=== PATIENT | female | born 1970 | race Caucasian/White ===

== ENCOUNTER 2022-08-23 02:43 | Emergency (ER) | payer MEDICAID, SELFPAY ==
[2022-08-23 02:55] VITALS: BP 151/87; PULSE 80; RESP 24; TEMP 37.1; O2SAT 99; BMI 33.5
--- NOTE | 2022-08-23 03:36 | ED_ITS ---
HPI - General Adult General Chief complaint: Unspecified Complaint, Adult Stated complaint: Numbness in hands and face Time Seen by Provider: 08/23/22 03:19 Source: patient Mode of arrival: ambulatory Limitations: no limitations History of Present Illness HPI narrative: Patient presents to the emergency department in the middle of the night with concerns of bilateral equal occasional intermittent tingling in her fingertips and feet. It always happens bilaterally and it is not associated with motor deficit. She states that her friend convinced her to come in and get ?checked out?. Patient says that these symptoms have been going on for weeks and she did bring them up briefly to her primary care provider at her recent office visit last week. Patient states that she was seen for her typical annual exam and she was diagnosed with osteoarthritis. It sounds as though she had multiple additional complaints in addition to the annual physical that she had booked. She does take several medications which would cause peripheral neurological changes including Soma and Lyrica and she also reports that she has recently started oxycodone. She also reports a diagnosis of fibromyalgia for over 20 years but has no history of neurological disorders such as ALS, MS or other peripheral nerve conditions. She has had no recent fever. She does report significant fatigue and states that she will stay in bed for days at a time. Again, I reiterate that often these are side effects of her medications. She has absolutely no difficulty walking into the emergency room, participating in exam today. She specifically denies stress, anxiety or any abuse potential within the home. She has had no recent falls, injury or trauma. She denies chest pain, acute illness or infection. She does also report some occasional numbness on the side of her face which is not currently present at this time. No speech difficulty, no swallowing difficulty. No vision change from baseline. Past medical history notable for fibromyalgia, sleep disorder, migraines. Medications are reviewed from the [facility]. Unfortunately there is a bit of a problem with the up link and I am not able to see her labs today that she had done last week. She denies marijuana use, illicit drug use or recent alcohol intake. No pertinent travel. ROS is notable for chronic pain, osteoarthritis pain in multiple sites, the neurological changes as above. No other focal stroke-like neurological symptoms. Related Data Home Medications Medication Instructions Recorded Confirmed carisoprodol 350 mg tablet 350 mg PO 3XD 08/23/22 08/23/22 cholecalciferol (vitamin D3) 125 125 mcg PO DAILY 08/23/22 08/23/22 mcg (5,000 unit) capsule fluticasone propionate 50 1 spray intranasal BID 08/23/22 08/23/22 mcg/actuation nasal spray,suspension ketoconazole 2 % shampoo topical DAILY PRN 08/23/22 lisinopril 10 mg tablet 10 mg PO DAILY 08/23/22 08/23/22 oxycodone-acetaminophen 5 mg-325 1 tab PO Q6H PRN pain 08/23/22 08/23/22 mg tablet pregabalin 150 mg capsule 150 mg PO BID 08/23/22 08/23/22 sucralfate 1 gram tablet 1 g PO BID 08/23/22 08/23/22 sumatriptan succinate 25 mg tablet 25 mg PO BID 08/23/22 08/23/22 sumatriptan succinate 50 mg tablet 100 mg PO BID PRN migraine 08/23/22 08/23/22 trazodone 100 mg tablet 150 mg PO QPM 08/23/22 08/23/22 Allergies Allergy/AdvReac Type Severity Reaction Status Date / Time dicyclomine Allergy Severe Anaphylaxis Verified 12/09/21 12:30 metoclopramide Allergy Severe Anaphylaxis Verified 12/09/21 12:30 cimetidine Allergy Mild Unknown Verified 12/09/21 12:30 naproxen Allergy Mild Nausea Verified 12/09/21 12:30 duloxetine Allergy Unknown Unknown Verified 12/09/21 12:30 gabapentin Allergy Unknown Unknown Verified 12/09/21 12:30 lactase Allergy Unknown Unknown Verified 12/09/21 12:30 lactulose Allergy Unknown Unknown Verified 12/09/21 12:30 latex Allergy Unknown Unknown Verified 12/09/21 12:30 omeprazole Allergy Unknown Unknown Verified 12/09/21 12:30 Proton Pump Inhibitors Allergy Unknown Unknown Verified 12/09/21 12:30 penicillin V AdvReac Mild Nausea, QUINONEZ Verified 12/09/21 12:30 Milk derivatives Allergy Severe H/A, Uncoded 12/09/21 12:30 vomiting Soy Allergy Allergy Intermediate Migraine, Uncoded 12/09/21 12:30 QUINONEZ METOCLOPRAMIDE HCL Allergy Unknown Uncoded 12/09/21 12:30 Mold extracts Allergy Unknown Uncoded 12/09/21 12:30 TRICHOPHYTON MENTAGROPHYTES Allergy Unknown Uncoded 12/09/21 12:30 ALLERGE Sulfa drugs AdvReac Mild Uncoded 12/09/21 12:30 PFSH PFSH Medical History Adenomatous colon polyp Bicornuate uterus Chronic back pain Condyloma acuminatum Dental abscess Endometriosis Fibromyalgia GERD (gastroesophageal reflux disease) Lumbar disc disease Migraine headache Myositis Osteoarthritis PONV (postoperative nausea and vomiting) PTSD (post-traumatic stress disorder) Ventricular fibrillation Surgical History Abnormal colonoscopy History of esophagogastroduodenoscopy (EGD) Social History Smoking Status: Never smoker Do you use any of these nicotine containing products: None How often do you have a drink containing alcohol: never AUDIT-C Alcohol total score: 0 Non-prescribed substance use: denies use service: No Exam Const: Vital Signs, click to edit/add: Vital Signs - 24 hr 08/23/22 02:55 Temperature 98.8 F Pulse Rate [Left P ulse Oximeter] 80 Respiratory Rate 24 Blood Pressure [Ri ght Upper Arm] 151/87 H Pulse Oximetry 99 Oxygen Delivery Me thod Room Air Documenting provider has reviewed patient's vital signs: yes Common normal s: no apparent distress and alert General appearance: cooperative, comfortable and well kempt Orientation/consciousness: Yes awake Other: Very meandering story, nurse reporting significant difficulty pinning down her symptoms in triage as well. Ambulates into emergency department into exam room with absolutely no fit difficulty. Speaking full fluent sentences, no confusion. HENMT: Common normals: normocephalic and head/scalp atraumatic Head and scalp: normocephalic and atraumatic Face and sinus: normal facial exam Mouth: oral and palatal mucosa normal Throat: posterior oropharynx normal Eye: Common normals: PERRL, EOMs intact bilaterally and conjunctivae normal General eye: normal appearance of both eyes Conjunctiva: conjunctiva(e) normal Pupil: PERRL Neck & C-Spine: Common normals: full ROM, no lymphadenopathy and supple Other: Some mild degenerative changes and poor posture overall, chronic rounding of shoulders. Resp: Common normals: normal respiratory effort, no use of accessory muscles and clear to auscultation bilaterally Effort & inspection: able to speak in complete sentences Auscultation: clear to auscultation bilaterally Cardio: Common normals: regular rate, regular rhythm, S1 normal heart sound, S2 normal heart sound, no murmurs and peripheral pulses 2+ throughout Rate: regular rate Rhythm: regular rhythm Heart sounds: S1 normal and S2 normal Peripheral pulses: pulses 2+ throughout GI: Common normals: Normal to inspection, nondistended, normoactive bowel sounds present and soft to palpation Palpation: soft Extremity: Common normals: normal capillary refill Other: Hands with normal symmetric movement bilaterally, no deformity. Minimal osteoarthritic changes but no redness, swelling, effusions. Fine motor exam and sensory exam is completely normal. Strength is normal in all fingers. Normal range of motion of both wrists. Neuro: Sensorium/orientation: awake and alert Cranial nerves: CN normal except as noted Coordination/balance: tandem gait normal, does not sway with eyes open, Romberg test negative, Normal rapid alternating movements of the distal upper extremity present (Neuro) and Normal rapid alternating movements of the distal lower extremity present (Neuro) Speech: speech normal Gait (neuro): normal gait Motor exam: strength 5/5 throughout, no pronator drift, no tremor noted, muscle tone normal throughout and no movement abnormalities noted Coordination: tandem gait normal, does not sway with eyes open, rapid alternating movement UE normal and rapid alternating movement LE normal Psych: Common normals: speech normal Appearance: well kempt Attitude: other (Mildly anxious but very reasonable) Activity/motor behavior: appropriate eye contact Speech: normal speech Memory/cognition: memory grossly intact Insight: insight good Judgement: judgment good Other: Very agreeable and understanding at my recommendation to not pursue an extensive workup after a very reassuring exam Skin: Common normals: no rashes or lesions noted General skin exam: no rashes or lesions noted Course Vital Signs Vital signs: Initial Vital Signs Temperature 98.8 F 08/23/22 02:55 Temperature Source Temporal Artery Scan 08/23/22 02:55 Pulse Rate 80 08/23/22 02:55 Pulse Rhythm 08/23/22 02:55 Pulse Strength 3+ Normal 08/23/22 02:55 Respiratory Rate 24 08/23/22 02:55 Blood Pressure 151/87 H 03/13/23 02:55 Blood Pressure Mean 108 08/23/22 02:55 Blood Pressure Position Semi-Fowlers 08/23/22 02:55 Pulse Oximetry 99 08/23/22 02:55 Oxygen Delivery Method 08/23/22 02:55 Vital Signs Temperature 98.8 F 08/23/22 02:55 Pulse Rate 80 08/23/22 02:55 Respiratory Rate 24 08/23/22 02:55 Blood Pressure 151/87 H 08/23/22 02:55 Pulse Oximetry 99 08/23/22 02:55 Oxygen Delivery Method 08/23/22 02:55 Temperature 98.8 F 08/23/22 02:55 Pulse Rate 80 08/23/22 02:55 Respiratory Rate 24 08/23/22 02:55 Blood Pressure 151/87 H 08/23/22 02:55 Pulse Oximetry 99 08/23/22 02:55 Oxygen Delivery Method 08/23/22 02:55 Medical Decision Making MDM Narrative Medical decision making narrative: Weeks of nonspecific bilateral symptoms in the setting of chronic medications and illness that would explain her symptoms. Recent full workup with primary care provider including labs. Completely benign and reassuring exam. I do not recommend repeat blood work, I do not recommend cranial imaging. I do strongly recommend primary care follow-up specifically to address this in a couple of weeks. She should be prepared to discuss reduction in her Soma and Lyrica if her symptoms are bothersome enough to warrant doing so. This may be no change in her pain control. The benefits of staying on the medication may outweigh the risk for her. This should be carefully considered by her primary care provider. I will make no changes in the emergency department today. She verbalizes understanding and complete agreement. Discharge Plan Discharge Clinical Impression: Numbness and tingling in both hands Patient Disposition: Home, Self-Care Condition: Stable Instructions: Paresthesia (ED) Additional Instructions: There are absolutely no signs of stroke today. I do not recommend that we repeat the blood work that you would have done last week or that we do any other advanced imaging of your head. Please make an appointment with your primary care provider specifically to address your concerns with your numbness. You are on several medications that would markedly increase her chance of tingling and clumsiness in your fingers such as your Soma and your Lyrica. Having fibromyalgia also increases this risk as well. It is important to remember that neurological changes equally in both hands especially things that have been going on gradually for several weeks do not warrant emergent worry. As we also discussed. Stopping or reducing your current medications is likely to have impact in your overall pain control. The side effects that you are experiencing are likely worth tolerating in the balance of your long-term health. If you do not believe this to be true, you should discuss a reduction with your primary care provider. It is possible that you have some mild underlying arthritis in your neck thick could be pressing on the nerves as well. Based on your exam, this is less likely because your strength is normal and your symptoms are on both sides of your body. Together, we agree that additional emergency room workup is not necessary. If you start having stroke-like symptoms such as passing out, significant changes from 1 side of the body to the other, speech difficulty and sudden neurological changes from her baseline, you should seek repeat evaluation. Activity Level: No Restrictions Discharge Diet: Regular Prescriptions: No Action carisoprodol 350 mg tablet 350 mg PO 3XD ketoconazole 2 % shampoo topical DAILY PRN sucralfate 1 gram tablet 1 g PO BID sumatriptan succinate 25 mg tablet 25 mg PO BID sumatriptan succinate 50 mg tablet 100 mg PO BID PRN (Reason: migraine) oxycodone-acetaminophen 5-325 mg tablet 1 tab PO Q6H PRN (Reason: pain) trazodone 100 mg tablet 150 mg PO QPM lisinopril 10 mg tablet 10 mg PO DAILY fluticasone propionate 50 mcg/actuation spray,suspension 1 spray INTRANASAL BID cholecalciferol (vitamin D3) 125 mcg (5,000 unit) capsule 125 mcg PO DAILY pregabalin 150 mg capsule 150 mg PO BID Follow Up/Referrals: Adele Rodriguez PA-C [Primary Care Provider] - Stand Alone Forms: [facility] Info Instructions
== END 2022-08-23 03:46 | disposition home or self-care (01) ==
PROVIDERS: Emergency Provider Family Medicine; PCP Physician Assistant Medical
DX: R20.0 Anesthesia of skin (principal)
CPT/HCPCS: 99282; 99283

== ENCOUNTER 2022-09-08 11:43 | Outpatient (CLI) | payer MEDICAID, SELFPAY | END 2022-09-08 11:44 | disposition home or self-care (01) | LOC: NFLDREF 11:44 | PROVIDERS: PCP Physician Assistant Medical; Visit Provider Obstetrics & Gynecology | DX: N81.9 Female genital prolapse, unspecified (principal) | CPT/HCPCS: 87086 ==

== ENCOUNTER 2023-04-04 16:15 | Inpatient (IN) | payer MEDICAID, SELFPAY ==
[2023-04-04] VITALS (21 sets, daily range): BP systolic 120–154; BP diastolic 70–97; PULSE 64–94; RESP 12–16; TEMP 36.4–37.3; O2SAT 93–98; BMI 36.6
[2023-04-04] MEDS: LACTATED RINGERS 1000 ML 1,000 ML 100 ML IV ×2 (09:25→11:52)
[2023-04-04] MEDS: SODIUM CHLORIDE 0.9 % (FLUSH) 10 ML SYRINGE IVF (09:25)
--- NOTE | 2023-04-04 09:48 | SUR.PREOP ---
PATIENT OFFERED A CALMING ESSENTIAL OIL PATCH FOR ANXIETY. PATIENT REVIEWED INGREDIENTS AND WANTED TO TRY.
--- NOTE | 2023-04-04 10:17 | P.GSOP_ITS ---
Operative Note Pre-op diagnosis: Incisional hernia, partially incarcerated Post-op diagnosis: Same Type of Procedure: Open repair 4 cm incisional hernia with mesh Indications: The patient is a 52-year-old female who has an umbilical hernia which has been present for several years. This may be incisional as she has had prior laparoscopic procedures. She is having worsening symptoms with activity and because of this she desires repair. Procedure Description: After discussing the risks and benefits of the procedure, the patient signed in formed consent.? The operative site was marked and the patient was brought to the operating room and placed on the operating table in supine position.? Care was taken to pad the patient's pressure points.?? The patient was then intubated by anesthesia.??Anesthesia performed a TAP block to help with intraoperative and postoperative pain control/anesthesia management. The operative site was then prepped and draped in the usual sterile fashion.? A time-out was then performed. Incision was made below the umbilicus. Dissection was taken down until the hernia sac was encountered. This was dissected off the umbilical stalk. There was more scar tissue between the hernia sac and subcutaneous than usual, indicating that this is likely an incisional hernia from prior surgeries. Dissection was taken down to fascia. The fascia was grasped with a Wild and pulled into view. There was an additional small omentum containing hernia just to the left of the larger defect. This was dissected out and also reduced. The hernia sac was excised. The fascial edges were cleared circumferentially. Now the hernia was examined. It measured 4 cm. I was able to then create a preperitoneal space by incising the hernia sac at the fascial edge. I did this circumferentially to be able to place a piece of 8 x 12 cm mesh. Once this was done I closed the peritoneum/hernia sac defect. In the preperitoneal space I placed the Bard Ventralight ST mesh. Using 2 0 PDS suture I secured this around the hernia as far away from the as possible to ensure the hernia mesh laid flat. Once this was done I was able to palpate that the mesh was flat within the preperitoneal space. I then closed the fascia over the top of the mesh using 2-0 PDS in a running fashion. This was closed cranially to caudal in the direction of the longest dimension of the mesh. Once this was done, the umbilicus was reapproximated to the fascia. The wound was then closed with 3-0 Vicryl dermal and 4-0 Monocryl running subcuticular suture. Glue and sterile dressings were applied. Instrument sponge and needle counts were correct at the end of the case. The patient was then woken and transported to the recovery area in stable condition. ? The patient tolerated the procedure well. Findings: 4 cm incisional umbilical hernia defect, 1 area containing incarcerated omentum. Anesthesia: GETA Surgeon: Varsha Lakhani MD Estimated blood loss (mL): 5 Disposition: PACU Date of procedure: 04/04/23
[2023-04-04] MEDS: CEFAZOLIN 2 GM INJ IVP (10:29)
--- NOTE | 2023-04-04 11:25 | W.PM.NB ---
Nerve Block Nerve Block Time Seen by Provider: 10:20 Date Seen: 04/04/23 Type of block requested by surgeon for post-operative analgesia: TAP Side: bilateral Time out performed: Yes Verification of patient name: Yes Verification of date of : Yes Site marking: not applicable Name of person performing procedure: maciej Continuous monitoring Was continuous monitoring of O2 sat, B/P, electrical and radio mock up mechanic, recorded every 15 minutes?: Yes Procedure Checklist: sterile prep, needles and gloves Ultrasound guided. Images saved: Yes Medications given in 5ml increments after negative aspiration: Marcaine %: 0.25 mL: 30 Needle gauge: 20 and Exparel mL: 10 Patient tolerated procedure well: Yes Block Charges Block Charge (with Pro Fee): TAP Bilateral Use of Ultrasound Machine for Block: Yes- US Guidance/pain block
[2023-04-04] MEDS: fentaNYL 100 MCG/2 ML inj 50 MCG IVP ×2 (12:05→12:11)
--- NOTE | 2023-04-04 12:06 | W.ANESCHARGE ---
Anesthesia Charges Start Date/Time Anesthesia Start Date: 04/04/23 Anesthesia Start Time: 10:05 Stop Date/Time Anesthesia Stop Date: 04/04/23 Anesthesia Stop Time: 12:02
[2023-04-04] MEDS: HYDROmorphone 0.5 mg/0.5 ml inj IVP ×6 (12:18→22:53)
[2023-04-04] MEDS: OXYCODONE 5 MG TABLET PO (13:11)
[2023-04-04] MEDS: HYDROCODONE-ACETAMIN 5-325 MG 1 TAB PO (17:01)
[2023-04-04] MEDS: cloNIDine HCL 0.1 MG TABLET PO (21:17)
[2023-04-04] MEDS: DOCUSATE SODIUM 100 MG CAPSULE PO (21:17)
--- NOTE | 2023-04-04 22:07 | PC.NURSE ---
VSS, RA. LMQ abdominal pain of 8-9/10- some relief w/ 0.5mg IV dilaudid x2 & oral norco x1. Tolerating regular diet, ate 100% of dinner. Drinking well. Voided x2. Last BM this AM, 04/04. Educated around constipation and narcotics. Up independently. PIV in left hand- SL'd. Will d/c tomorrow if pain controlled. Will continue not monitor, follow POC, and keep pt and family updated. Geovanna Colon RN
[2023-04-04] MEDS: ZOLPIDEM 5 MG TABLET 10 MG PO (22:53)
[2023-04-05] MEDS: HYDROmorphone 0.5 mg/0.5 ml inj IVP ×8 (01:14→23:39)
[2023-04-05 03:00] VITALS: BP 132/89; PULSE 75; RESP 16; TEMP 36.8; O2SAT 95
[2023-04-05] MEDS: SODIUM CHLORIDE 0.9 % (FLUSH) 10 ML SYRINGE IVF (03:37)
--- NOTE | 2023-04-05 06:19 | PC.NURSE ---
Shift note: Pt is tolerating regular diet well without any abdominal symptoms. Independent in room. Dressing appeared dry and clean. Pt constantly asked for pain medication specifically Hydrocodone every 2 hours, rated pain at 8. Offered to give other prescribed pain medications but pt declined. Pt specifically requested foe Hydrocodone. Alert and oriented,vitally stable.
--- NOTE | 2023-04-05 07:24 | W.PM.NB ---
Nerve Block Nerve Block Time Seen by Provider: 10:20 Date Seen: 04/05/23 Type of block requested by surgeon for post-operative analgesia: TAP Side: bilateral Time out performed: Yes Verification of patient name: Yes Verification of date of : Yes Site marking: not applicable Name of person performing procedure: maciej Continuous monitoring Was continuous monitoring of O2 sat, B/P, manager monitoring, recorded every 15 minutes?: Yes Procedure Checklist: sterile prep and needles Ultrasound guided. Images saved: Yes Medications given in 5ml increments after negative aspiration: Marcaine %: 0.25 mL: 30 Needle gauge: 20 and Exparel mL: 10 Patient tolerated procedure well: Yes Block Charges Block Charge (with Pro Fee): TAP Bilateral Use of Ultrasound Machine for Block: Yes- US Guidance/pain block
[2023-04-05 08:00] VITALS: BP 153/95; PULSE 70; RESP 18; TEMP 36.3; O2SAT 98
[2023-04-05] MEDS: KETOROLAC 15 MG/ML inj IVP (08:57)
[2023-04-05] MEDS: lisinopriL 10 MG TABLET PO (09:57)
[2023-04-05] MEDS: cloNIDine HCL 0.1 MG TABLET PO ×2 (09:57→20:35)
[2023-04-05] MEDS: DOCUSATE SODIUM 100 MG CAPSULE PO ×2 (09:58→20:35)
--- NOTE | 2023-04-05 10:05 | NUTR.NU ---
RDN with diet education. Patient is post op day 1 from hernia repair. She is currently on a high-fiber diet which she is tolerating. RDN visited with patient whom reports trying to include high-fiber foods at home, specifically breads. RDN offered diet education for high-fiber diet, however patient declined at this time. Patient did accept educational materials on high-fiber diet (from [facility]). RDN's contact informaiton was provided and patient was encouraged to call with questions or concerns.
[2023-04-05] MEDS: OxyCODONE/APAP 5-325 TABLET PO ×4 (10:27→22:51)
[2023-04-05] MEDS: OXYCODONE 5 MG TABLET PO (10:28)
--- NOTE | 2023-04-05 12:33 | PM.GSPN ---
Subjective Subjective Date Seen: 04/05/23 Interval history: Ashley continues to rate her pain as persistently 8-9 and 10. She has been up and moving around. No tachycardia. She does not like the Vernon as she does not feel that works for her. She does take Percocet, 7.5 mg 3 times a day. Exam Narrative: Exam Narrative: General: No acute distress, though she is somewhat tearful when we discussed discharge. CV: Regular rate Abdomen: Dressing is clean and dry. Appropriately tender for the postop state. Const: Vital Signs, click to edit/add: Vital Signs - 24 hr 04/04/23 12:47 04/04/23 13:00 04/04/23 13:15 Temperature 99.2 F Pulse Rate 74 67 68 Pulse Rate [Left P ulse Oximeter] Respiratory Rate 16 16 16 Blood Pressure 134/87 120/77 138/97 H Blood Pressure [Ri ght Arm] Pulse Oximetry 96 95 94 Oxygen Delivery Me thod Room Air Room Air Room Air 04/04/23 13:30 04/04/23 13:45 04/04/23 14:00 Temperature Pulse Rate 80 85 80 Pulse Rate [Left P ulse Oximeter] Respiratory Rate 16 16 16 Blood Pressure 132/90 H 132/84 130/70 Blood Pressure [Ri ght Arm] Pulse Oximetry 93 94 94 Oxygen Delivery Me thod Room Air Room Air Room Air 04/04/23 14:15 04/04/23 14:45 04/04/23 16:00 Temperature 97.5 F L Pulse Rate 80 82 77 Pulse Rate [Left P ulse Oximeter] Respiratory Rate 16 16 16 Blood Pressure 130/72 132/77 Blood Pressure [Ri ght Arm] 136/91 H Pulse Oximetry 97 97 Oxygen Delivery Me thod Room Air Room Air Room Air 04/04/23 16:14 04/04/23 19:00 04/04/23 23:00 Temperature 97.5 F L 98.4 F 97.6 F Pulse Rate Pulse Rate [Left P ulse Oximeter] 77 77 94 Respiratory Rate 16 16 16 Blood Pressure Blood Pressure [Ri ght Arm] 136/91 H 151/89 H 154/96 H Pulse Oximetry 95 94 96 Oxygen Delivery Me thod Room Air Room Air Room Air 04/05/23 03:00 04/05/23 03:00 Temperature 98.2 F Pulse Rate Pulse Rate [Left P ulse Oximeter] 75 Respiratory Rate 16 16 Blood Pressure Blood Pressure [Ri ght Arm] 132/89 Pulse Oximetry 95 Oxygen Delivery Me thod Room Air Progress Note: A&P Assessment and plan (1) Opioid dependence: Status: Acute (2) Chronic pain: Status: Acute (3) Post-op pain: Status: Acute (4) S/P hernia repair: Status: Acute Plan The patient is a 52-year-old female status post umbilical hernia repair. She is very apprehensive about discharge home because she has a history of poor postoperative pain control after surgery. She does chronically take opioids. She has tried going to a pain clinic previously but did not feel that this helped. -we will switch Vernon to Percocet to see if this gives her better pain control. I have also ordered oral oxycodone for breakthrough as this is what she will be going home on. -we discussed Toradol. Given her gastric bypass, she is at increased risk for ulcer and gastritis, however a short course is reasonable as an adjunct treatment. - if she is able to tolerate oral meds she may discharge home later today. -recommended abdominal binder for support
[2023-04-05 13:00] VITALS: BP 138/71; PULSE 73; RESP 18; TEMP 36.5; O2SAT 98
[2023-04-05 15:00] VITALS: BP 107/74; PULSE 71; RESP 18; TEMP 36.4; O2SAT 95
--- NOTE | 2023-04-05 15:34 | PC.NURSE ---
Paresh by Dr. Lakhani. Pt continues to rate her abdominal pain 8-9 out of 10. Medications changed by surgeon, please see eMar for medications provided on day shift.. Tolerated regular diet. Adequate output, urine is slightly concentrated, encourage PO fluids and ambulation. Declined offer of abdominal binder. Last pain check just prior to shift change was 7 out of 10, followed by the administration of 2 percocet. Report to Geovanna LUA for evening shift.
[2023-04-05 19:00] VITALS: BP 117/74; PULSE 68; RESP 16; TEMP 36.4; O2SAT 99
[2023-04-05] MEDS: ZOLPIDEM 5 MG TABLET 10 MG PO (20:35)
--- NOTE | 2023-04-05 23:00 | PC.NURSE ---
End of Shift: Patient pleasant and cooperative. Afebrile. Dressing to abdomen C/D/I. Bowel sounds active, passing flatus. No BM. Tolerating regular diet with no nausea. Up independently in room. Rating pain in abdomen 7-9/10, PRN Dilaudid and Percocet each given x2, taking pain medication about every 2 hours. Updated MD.
[2023-04-05 23:45] VITALS: BP 114/57; PULSE 78; RESP 16; TEMP 36.5; O2SAT 95
[2023-04-06] VITALS (8 sets, daily range): BP systolic 111–136; BP diastolic 66–82; PULSE 60–87; RESP 12–18; TEMP 36.3–36.6; O2SAT 8–98
[2023-04-06] MEDS: HYDROmorphone 0.5 mg/0.5 ml inj IVP ×3 (01:51→20:08)
[2023-04-06] MEDS: OxyCODONE/APAP 5-325 TABLET PO ×5 (03:43→18:59)
[2023-04-06] MEDS: KETOROLAC 15 MG/ML inj IVP ×2 (04:44→10:15)
[2023-04-06] MEDS: OXYCODONE 5 MG TABLET PO ×3 (07:58→23:24)
--- NOTE | 2023-04-06 08:04 | PC.NURSE ---
Pt is alert and oriented x3. Pt reports 9/10 pain in abdomen, pattern chart writer observed pt's respirations were 16, pt was conversing with pattern chart writer about medications, vitals signs were stable, pain managed with PRN medications and ice pack. Pt's abdominal dressing CDI. Supervisor Pipe Manufacture talked with pt about pain management, frequency, and control, IV medications, Ice pack. Writers asked pt how she manages chronic pain at home, pt reports I take scheduled Percocet 4 times a day, pattern chart writer talked with pt about drug side effects, pt verbalized understanding. Pt is up ad tomas in room, tolerating regular diet, and voiding. Pt slept intermittently throughout night.
[2023-04-06] MEDS: cloNIDine HCL 0.1 MG TABLET PO ×2 (09:08→20:08)
[2023-04-06] MEDS: lisinopriL 10 MG TABLET PO (09:08)
[2023-04-06] MEDS: DOCUSATE SODIUM 100 MG CAPSULE PO (09:08)
[2023-04-06] MEDS: ONDANSETRON 2 MG/ML inj 4 MG IVP (10:14)
[2023-04-06 11:49] LABS: Chloride* 103 mmol/L (96-114)
[2023-04-06 11:50] LABS: Potassium* 4.4 mmol/L (3.6-5.1); Sodium* 136 mmol/L (135-149)
[2023-04-06 11:52] LABS: Anion Gap 5 mEq/L (7-15); Carbon Dioxide* 28 mmol/L (20-32); Creatinine* 0.7 mg/dL (0.5-1.5); Est. Creatinine Clearance* 102.82; Estimated Glomerular Filt Rate 105 ml/min
[2023-04-06 11:53] LABS: Blood Urea Nitrogen* 23 mg/dL (7-30); Calcium* 8.2 mg/dL (8.4-10.6); Glucose* 95 mg/dL (60-115)
[2023-04-06] MEDS: PROCHLORPERAZINE 5 MG/ML VIAL IV (12:29)
[2023-04-06] MEDS: SUCRALFATE 1 GM TABLET PO (13:32)
--- NOTE | 2023-04-06 13:45 | PM.GSPN ---
Subjective Subjective Date Seen: 04/06/23 Interval history: Ashley developed some nausea this morning. Has not had much of an appetite. Does have abdominal pain at the surgical site, however no additional pain. Has passed gas. No bowel movement. Exam Narrative: Exam Narrative: General: Vital signs are stable. CV: Regular rate and rhythm Respiratory: Clear to auscultation bilaterally Abdomen: Protuberant. Incision is clean and dry without erythema. Appropriately tender for the postoperative state. Const: Vital Signs, click to edit/add: Vital Signs - 24 hr 04/05/23 15:00 04/05/23 15:00 04/05/23 19:00 Temperature 97.5 F L 97.5 F L Pulse Rate [Left P ulse Oximeter] 71 71 68 Respiratory Rate 18 18 16 Blood Pressure [Le ft Arm] Blood Pressure [Ri ght Arm] 107/74 117/74 Pulse Oximetry 95 99 Oxygen Delivery Me thod Room Air Room Air 04/05/23 23:45 04/05/23 23:45 04/06/23 02:00 Temperature 97.7 F 97.9 F Pulse Rate [Left P ulse Oximeter] 78 78 71 Respiratory Rate 16 16 18 Blood Pressure [Le ft Arm] Blood Pressure [Ri ght Arm] 114/57 L 119/71 Pulse Oximetry 95 98 Oxygen Delivery Me thod Room Air Room Air 04/06/23 07:00 04/06/23 08:00 04/06/23 10:01 Temperature 97.5 F L 97.4 F L Pulse Rate [Left P ulse Oximeter] 64 64 63 Respiratory Rate 16 16 Blood Pressure [Le ft Arm] 129/67 Blood Pressure [Ri ght Arm] 136/82 Pulse Oximetry 8 L Oxygen Delivery Me thod Room Air 04/06/23 11:45 Temperature 97.5 F L Pulse Rate [Left P ulse Oximeter] 60 Respiratory Rate 12 Blood Pressure [Le ft Arm] Blood Pressure [Ri ght Arm] 124/79 Pulse Oximetry 98 Oxygen Delivery Me thod Room Air Labs/Imaging Labs Labs: Electrolytes within normal limits per Progress Note: A&P Assessment and plan (1) Nausea & vomiting: Status: Acute (2) S/P hernia repair: Status: Acute (3) Post-op pain: Status: Acute (4) Chronic pain: Status: Acute (5) Opioid dependence: Status: Acute Plan The patient is a 52-year-old female status post umbilical hernia repair with mesh. She is still admitted to the hospital postoperative pain. Today she developed nausea and vomiting. No increase in abdominal pain. She did still get a dose of IV Dilaudid this morning. She has previously developed nausea from NSAIDs and so Toradol was stopped. Carafate was used to treat this and so a dose was ordered. We will see if we can get her nausea under control and then if she is feeling better she could potentially discharge home. I did encourage her to try to use oral pain medicine today rather than IV. -will start Lovenox for DVT prophylaxis today -if patient continues to have nausea and vomiting will have to be NPO with IV fluids.
[2023-04-06] MEDS: ENOXAPARIN 40 MG/0.4 ML INJ SUBCUT (17:17)
--- NOTE | 2023-04-06 17:57 | PC.NURSE ---
End of Shift: Patient pleasant and cooperative. Patient vitally stable, lungs clear, BS WNL, IV intact and SL. Patient with nausea today, zophran given, then compazine given at patient was still vomiting after zophran. Nausea improved after compazine, emesis about 200cc total. Patient always rates pain 7-8/10. Dilauded and toradol given once, oxy 5mg given x2 and percocet given x3. Patient has not requested pain medicine after administration of IV pain medications nor has television script writer offered, television script writer has given percocet and oxy when due. Patient tolerated lunch and dinner without emesis. Active Ice used on abdomen for pain. Patient independent in room, up in chair, and urinating. Abdominal umbilical incision C/D/I. Patient is aware of discharge tomorrow.
[2023-04-06] MEDS: SENNOSIDES/DOCUSATE TABLET 1 TAB PO (20:08)
[2023-04-07] MEDS: HYDROmorphone 0.5 mg/0.5 ml inj IVP (01:27)
[2023-04-07] MEDS: ZOLPIDEM 5 MG TABLET 10 MG PO (02:41)
[2023-04-07 02:46] VITALS: BP 122/69; PULSE 70; RESP 16; TEMP 36.6; O2SAT 95
--- NOTE | 2023-04-07 06:25 | PC.NURSE ---
Shift note: Pt had no nausea and vomiting this shift. Alert and oriented. Pain level has constantly been at 8 per pt. PRN Oxycodone and Hydrocodone given as requested. Vitally stable. Bowel sound active.
[2023-04-07] MEDS: OXYCODONE 5 MG TABLET PO (06:32)
[2023-04-07 07:00] VITALS: BP 129/74; PULSE 72; RESP 16; TEMP 36.6; O2SAT 95
[2023-04-07] MEDS: ACETAMINOPHEN 325 MG TABLET 650 MG PO (07:53)
--- NOTE | 2023-04-07 08:47 | P.DS_ITS ---
DS: Providers Provider Date Seen: 04/07/23 Date of admission: 04/05/23 16:34 Primary care physician: Adele Rodriguez PA-C Admitting Clinician: Steven Elizalde MD Attending Physician on discharge: Varsha Lakhani MD DS: Diagnosis Discharge Diagnosis (1) S/P hernia repair: Status: Acute DS: Summary Hospital Course Hospital Course: 52-year-old female was admitted to the hospital after she underwent umbilical incisional hernia repair with mesh. Patient has chronic pain and was admitted for pain control postoperatively. She did well postoperatively. She had nausea and vomiting which improved. Her pain was controlled with p.o. medications. She was passing gas in the day of discharge. Time Spent with Patient Time attestation: Total time spent providing and/or coordinating discharge services: Exam Narrative: Exam Narrative: Abdomen is soft, not distended, there is minimal discomfort to palpation to the left of the umbilicus and inferior to the umbilicus. Surgical glue is intact at the infraumbilical incision and there is no surrounding erythema. Const: Vital Signs, click to edit/add: Vital Signs - 24 hr 04/06/23 10:01 04/06/23 11:45 04/06/23 15:00 Temperature 97.4 F L 97.5 F L 97.5 F L Pulse Rate [Left P ulse Oximeter] 63 60 61 Respiratory Rate 12 14 Blood Pressure [Le ft Arm] Blood Pressure [Ri ght Arm] 136/82 124/79 111/66 Pulse Oximetry 98 97 Oxygen Delivery Me thod Room Air Room Air 04/06/23 15:00 04/06/23 19:00 04/06/23 23:00 Temperature 97.5 F L 97.7 F Pulse Rate [Left P ulse Oximeter] 61 87 67 Respiratory Rate 14 16 16 Blood Pressure [Le ft Arm] 121/66 120/69 Blood Pressure [Ri ght Arm] Pulse Oximetry 96 96 Oxygen Delivery Me thod Room Air Room Air 04/07/23 02:46 04/07/23 07:00 04/07/23 07:00 Temperature 97.8 F 98 F Pulse Rate [Left P ulse Oximeter] 70 72 72 Respiratory Rate 16 16 16 Blood Pressure [Le ft Arm] 122/69 Blood Pressure [Ri ght Arm] 129/74 Pulse Oximetry 95 95 Oxygen Delivery Me thod Room Air Room Air DS: Data Data Completed and Pending Labs on day of discharge: Labs from last 24 hours 04/06/23 11:28 Sodium 136 Potassium 4.4 Chloride 103 Carbon Dioxide 28 Anion Gap 5 L BUN 23 Creatinine 0.7 Estimated Creat Clear 102.82 Estimated GFR 105 Glucose 95 Calcium 8.2 L Discharge Plan Discharge Disposition: Home, Self-Care Date of Admission: 04/05/23 16:34 Attending Provider on Discharge: Varsha Lakhani Primary Care Provider: Adele Rodriguez Condition: Stable Anticipated Discharge Date/Time: 04/07/23 08:46 Discharge Medications: New oxycodone 5 mg Tablet 5 - 10 mg PO Q6H PRN (Reason: Pain) Qty: 30 0RF Continued zolpidem 5 mg tablet 5 mg PO HS PRN (Reason: insomnia) rizatriptan 10 mg tablet 10 mg PO Q2H PRN (Reason: migraine) carisoprodol 350 mg tablet 350 mg PO 3XD ketoconazole 2 % shampoo 1 applic topical DAILY PRN sucralfate 1 gram tablet 1 g PO BID oxycodone-acetaminophen 5-325 mg tablet 1 tab PO Q6H PRN (Reason: pain) trazodone 100 mg tablet 150 mg PO HS lisinopril 10 mg tablet 10 mg PO DAILY fluticasone propionate 50 mcg/actuation spray,suspension 1 spray INTRANASAL BID PRN cholecalciferol (vitamin D3) 125 mcg (5,000 unit) capsule 125 mcg PO DAILY pregabalin 150 mg capsule 150 mg PO TID clonidine HCl 0.1 mg tablet 0.1 mg PO BID cyanocobalamin (vitamin B-12) 1,000 mcg capsule 1,000 mcg PO DAILY cyclobenzaprine 10 mg tablet 10 mg PO 3XD PRN (Reason: muscle spasm) docusate sodium 100 mg capsule 100 mg PO BID loratadine [Claritin] 10 mg tablet 10 mg PO DAILY naloxone [Narcan] 4 mg/actuation spray,non-aerosol 1 spray intranasal Q2-3M PRN Rx Instructions: spray 1 dose into ONE nostril; alternate nostrils w each dose until help arrives ondansetron 4 mg tablet,disintegrating 8 mg PO Q8H PRN sumatriptan succinate [Imitrex] 25 mg tablet 25 mg PO Q2-4H PRN Rx Instructions: do not exceed 8 doses per 24 hrs Discharge Orders: Discharge Order (Routine); Ordered 04/07/23 Ordered By: Mellissa Okeefe Consulting provider completed their portion of the discharge: Yes Patient Education: Umbilical Hernia Repair (DC), Care After General Anesthesia (DC), Post-Operative Instructions: Hernia Repair Additional Instructions: Wound care: Your sutures are under the skin and will dissolve over time. Remove outer bandage tomorrow. Leave glue in place until it falls off. OK to shower tomorrow but avoid bathing, soaking or swimming for 2 weeks. Pat the incisions dry. No need to wash or scrub the area. Apply ice to the area as needed for swelling. It is also OK to use a heating pad if this provides more comfort to you. Pain control: You were prescribed two pain medications. You can take both this in addition to your baseline dose of pain medication for chronic pain, however, you must exercise caution with the additional oxycodone as it can cause drowsiness and difficulty breathing if too much is taken. You should start with the lowest dose. You were prescribed Ketorolac, however, you do not need to fill this if you are having nausea as this can cause stomach upset if taken for several days. You should not drive while you are taking prescription pain medication. Take an [id number] stool softener while you are taking prescribed pain medications to help alleviate constipation. I recommend Senna and/or Colace. Take as directed on package. If you have not had a bowel movement in 3 days, try taking Miralax as directed on the package. All of these are available over the counter. Follow-up Follow up with Dr. Lakhani in 2-3 weeks Please call if you are experiencing severe pain, nausea, vomiting, difficulty urinating, fever or have not had bowel movement in 4 days after surgery. Activity Level: No strenuous activity Activity Detail: No lifting more than 20 lb for 6 weeks. Wear abdominal binder when up until you follow-up with Dr. Lakhani Discharge Diet: Regular Follow Up Appointments: Varsha Lakhani MD [Staff Physician] - 04/26/23 1:45 pm (FOLLOW UP WITH DR. LAKHANI AT [facility] [phone]) Forms: Work/School Release
[2023-04-07] MEDS: OxyCODONE/APAP 5-325 TABLET PO (10:09)
[2023-04-07] MEDS: SENNOSIDES/DOCUSATE TABLET 1 TAB PO (10:10)
[2023-04-07] MEDS: cloNIDine HCL 0.1 MG TABLET PO (10:10)
[2023-04-07] MEDS: lisinopriL 10 MG TABLET PO (10:10)
--- NOTE | 2023-04-07 10:39 | PC.NURSE ---
Nursing Care Hours: [id number] Pt this shift alert and oriented, calm and cooperative. No signs of distress. Rating pain 9/10 after receiving pain meds hour prior. Acetaminophen given per eMAR. Reassessed at discharge after reviewing pain scale descriptions and pt rating pain 7/10, treated per eMAR. Ice pack being used. Abdomen soft on palpation, BS active, RLQ hypo. Pt reported BM this morning. Slight nausea in morning, saltine crackers and cool wash cloth given, intervention effective. Independent in room. Pt not using abdominal binder. Educated on use and benefit for pain and discomfort. IV removed at discharge, instructions went over with pt. All questions and concerns addressed.
== END 2023-04-07 10:12 | disposition home or self-care (01) | DRG 940 ==
LOC: MEDSURG 04-05 09:26
PROVIDERS: Admitting Provider Surgery; PCP Physician Assistant Medical; Visit Provider Surgery
PROC: 0WUF0JZ Supplement Abdominal Wall with Synthetic Substitute, Open Approach (ICD-10-PCS; principal; 2023-04-04 10:15)
DX: G89.18 Other acute postprocedural pain (principal); F11.20 Opioid dependence, uncomplicated; K43.0 Incisional hernia with obstruction, without gangrene; R11.2 Nausea with vomiting, unspecified; Z98.84 Bariatric surgery status; G89.29 Other chronic pain; E66.01 Morbid (severe) obesity due to excess calories; Z68.36 Body mass index [BMI] 36.0-36.9, adult; M51.37 Other intervertebral disc degeneration, lumbosacral region; I10 Essential (primary) hypertension; M79.7 Fibromyalgia
CPT/HCPCS: 00832; 36415; 64488; 76942; 80048; A4467; A9270; C1781; C9290; J0665; J0690; J0780; J1100; J1170; J1650; J1885; J2250; J2371; J2405; J2704; J3010; J3490; J7120

== ENCOUNTER 2024-04-29 20:38 | Observation (INO) | payer MEDICAID, SELFPAY ==
[2024-04-29] VITALS (15 sets, daily range): BP systolic 114–139; BP diastolic 79–96; PULSE 78–92; RESP 16–18; TEMP 36.2–36.6; O2SAT 90–100; BMI 33.5; BMI 43.2
--- NOTE | 2024-04-29 21:05 | ED_ITS ---
HPI - General Adult General Chief complaint: Altered Mental Status Stated complaint: altered mental status Time Seen by Provider: 04/29/24 20:55 History of Present Illness HPI narrative: Patient arrives via [facility] with c/o altered mental status from her home in [place]. Patient has been acting like a zombie per family the last few days. Patient was standing in front of a cupboard trying to drink water out of an empty cup when family called 911. Patient became combative with EMS and was restrained and given 5mg versed IM. Patient arrives out of restraints and cooperative. Patient was also given 4mg zofran IVP and 2 lpm O2 after versed admin. Patient's family is concerned the patient has been taking too much oxycodone for her fibromyalgia. Patient is alert to name and . Patient is able to move all extremities equally. BGL 73 in triage. Global sedation without noted focal deficits. Patient c/o chronic spine pain at 6/10. Patient denies fever, cough, recent illness. Patient denies injuries/ falls . Patient denies urinary sx. Patient denies illicit drug/alcohol use. Dad found her on BR floor last night at 1800 and couldn't get her up - possible fall - Father states this has happened several times and believes its a combination of oxycodone and muscle relaxers and takes her a few days to sober up. Pt lives with her father and granddaughter and states he is not safe to take care of her when she gets like this. Effie Tanner (Father) [phone] 53-year-old woman presenting to the emergency department via EMS with concern of altered mental status. She has been rather out of it for family particularly father with whom she lives. Ashley also reports living in this home with her daughter. She does not recall much of today. She believes she played with her daughter yesterday. Does admit that pain has been escalating recently. She say s though that she has been taking her medications as prescribed which do include opiate pain pills and once a course of proton all and pregabalin. She does report left-sided sciatic pain. Does not endorse headache shortness of breath or abdominal pain. No fevers. No cough or cold symptoms recently. She is thirsty. Yesterday evening was found on the floor in the bathroom by her father. Apparently similar events have occurred when has taken too many medications. Denies other substances Review of records shows that has been lately requesting pain medications early. Related Data Home Medications ?Medication ?Instructions ?Recorded ?Confirmed carisoprodol 350 mg tablet 350 mg PO 3XD 08/23/22 04/29/24 cholecalciferol (vitamin D3) 125 125 mcg PO DAILY 08/23/22 04/29/24 mcg (5,000 unit) capsule fluticasone propionate 50 1 spray intranasal BID PRN 08/23/22 04/29/24 mcg/actuation nasal spray,suspension oxycodone-acetaminophen 5 mg-325 1 tab PO Q6H PRN pain 08/23/22 04/29/24 mg tablet pregabalin 150 mg capsule 150 mg PO TID 08/23/22 04/29/24 cyanocobalamin (vitamin B-12) 1,000 mcg PO DAILY 04/01/23 04/29/24 1,000 mcg capsule loratadine 10 mg tablet (Claritin) 10 mg PO DAILY 04/01/23 04/29/24 naloxone 4 mg/actuation nasal 1 spray intranasal Q2-3M PRN 04/01/23 04/29/24 spray (Narcan) sumatriptan succinate 25 mg tablet 25 mg PO Q2-4H PRN 04/01/23 04/29/24 (Imitrex) eszopiclone 3 mg tablet 3 mg PO QPM 04/29/24 04/29/24 Allergies Allergy/AdvReac Type Severity Reaction Status Date / Time dicyclomine Allergy Severe Anaphylaxis Verified 03/20/24 09:27 metoclopramide Allergy Severe Anaphylaxis Verified 03/20/24 09:27 cimetidine Allergy Mild Unknown Verified 03/20/24 09:27 naproxen Allergy Mild Nausea Verified 03/20/24 09:27 duloxetine Allergy Unknown Unknown Verified 03/20/24 09:27 gabapentin Allergy Unknown Unknown Verified 03/20/24 09:27 lactase Allergy Unknown Unknown Verified 03/20/24 09:27 lactulose Allergy Unknown Unknown Verified 03/20/24 09:27 latex Allergy Unknown Unknown Verified 03/20/24 09:27 omeprazole Allergy Unknown Unknown Verified 03/20/24 09:27 Proton Pump Inhibitors Allergy Unknown Unknown Verified 03/20/24 09:27 penicillin V AdvReac Mild Nausea, QUINONEZ Verified 03/20/24 09:27 Milk derivatives Allergy Severe H/A, Uncoded 03/20/24 09:27 vomiting Soy Allergy Allergy Intermediate Migraine, Uncoded 03/20/24 09:27 QUINONEZ METOCLOPRAMIDE HCL Allergy Unknown Uncoded 03/20/24 09:27 Mold extracts Allergy Unknown Uncoded 03/20/24 09:27 TRICHOPHYTON MENTAGROPHYTES Allergy Unknown Uncoded 03/20/24 09:27 ALLERGE Sulfa drugs AdvReac Mild Uncoded 03/20/24 09:27 [facility] Medical History Ventricular fibrillation ?I49.01 - Ventricular fibrillation (ICD-10) PTSD (post-traumatic stress disorder) ?F43.10 - Post-traumatic stress disorder, unspecified (ICD-10) PONV (postoperative nausea and vomiting) ?R11.2 - Nausea with vomiting, unspecified (ICD-10) ?Z98.890 - Other specified postprocedural states (ICD-10) Osteoarthritis ?M19.90 - Unspecified osteoarthritis, unspecified site (ICD-10) Myositis ?M60.9 - Myositis, unspecified (ICD-10) GERD (gastroesophageal reflux disease) ?K21.9 - Gastro-esophageal reflux disease without esophagitis (ICD-10) Fibromyalgia ?M79.7 - Fibromyalgia (ICD-10) Endometriosis ?N80.9 - Endometriosis, unspecified (ICD-10) Lumbar disc disease ?M51.9 - Unspecified thoracic, thoracolumbar and lumbosacral intervertebral disc disorder (ICD-10) Condyloma acuminatum ?A63.0 - Anogenital (venereal) warts (ICD-10) Bicornuate uterus ?Q51.3 - Bicornate uterus (ICD-10) Adenomatous colon polyp ?D12.6 - Benign neoplasm of colon, unspecified (ICD-10) Chronic back pain ?M54.9 - Dorsalgia, unspecified (ICD-10) ?G89.29 - Other chronic pain (ICD-10) Migraine headache ?G43.909 - Migraine, unspecified, not intractable, without status migrainosus (ICD-10) Dental abscess ?K04.7 - Periapical abscess without sinus (ICD-10) Surgical History H/O hernia repair (04/04/23) ?Z98.890 - Other specified postprocedural states (ICD-10) ?Z87.19 - Personal history of other diseases of the digestive system (ICD-10) History of cholecystectomy ?Z90.49 - Acquired absence of other specified parts of digestive tract (ICD- 10) History of Kit-en-Y gastric bypass ?Z98.84 - Bariatric surgery status (ICD-10) Hx of hysterectomy ?Z90.710 - Acquired absence of both cervix and uterus (ICD-10) History of esophagogastroduodenoscopy (EGD) ?Z98.890 - Other specified postprocedural states (ICD-10) Abnormal colonoscopy ?R93.3 - Abnormal findings on diagnostic imaging of other parts of digestive tract (ICD-10) Social History Smoking Status: Never smoker Do you use any of these nicotine containing products: None How often do you have a drink containing alcohol: never How often do you have six or more drinks on one occasion: Never AUDIT-C Alcohol total score: 0 Non-prescribed substance use: denies use and other Non-prescribed substance use details: CBD Oil Caffeine: No Are you using contraception or practicing any form of control: No service: No Exam Narrative: Exam Narrative: Is pleasant but appears mildly obtundent. Intermittently slurring some words. There is some smell of urine. Moving all extremities without apparent difficulty. Regularly wiggling her feet at the ankles; in apparent restlessness/discomfort. Abdomen is obese soft nontender. No indication of injury. Heart in regular rate and rhythm. Distant. Lungs are clear. No indication of injury on her extremities or head. Cranial nerves 2-12 are intact. Pupils are 4 mm and appropriate reactive and accommodating. No nystagmus. Extraocular movements appear full. Oropharynx is sticky. Const: Vital Signs, click to edit/add: Vital Signs - 24 hr 04/29/24 20:51 04/29/24 21:04 04/29/24 21:15 Temperature 97.2 F L Pulse Rate 85 84 Pulse Rate [Right Pulse Oximeter] 92 Respiratory Rate 16 18 Blood Pressure 123/86 Blood Pressure [Le ft Upper Arm] 120/79 Pulse Oximetry 98 96 96 Oxygen Delivery Me thod Room Air Room Air 04/29/24 21:16 04/29/24 21:30 04/29/24 21:32 Temperature Pulse Rate 84 84 88 Pulse Rate [Right Pulse Oximeter] Respiratory Rate 18 Blood Pressure 124/96 H Blood Pressure [Le ft Upper Arm] Pulse Oximetry 97 99 98 Oxygen Delivery Me thod Room Air 04/29/24 21:33 04/29/24 21:45 04/29/24 22:00 Temperature Pulse Rate 90 80 80 Pulse Rate [Right Pulse Oximeter] Respiratory Rate Blood Pressure Blood Pressure [Le ft Upper Arm] Pulse Oximetry 96 99 96 Oxygen Delivery Me thod 04/29/24 22:02 04/29/24 22:20 04/29/24 22:30 Temperature Pulse Rate 82 79 78 Pulse Rate [Right Pulse Oximeter] Respiratory Rate 16 Blood Pressure 114/80 Blood Pressure [Le ft Upper Arm] Pulse Oximetry 97 92 96 Oxygen Delivery Me thod Room Air 04/29/24 22:32 04/29/24 22:45 Temperature Pulse Rate 85 81 Pulse Rate [Right Pulse Oximeter] Respiratory Rate Blood Pressure 124/83 Blood Pressure [Le ft Upper Arm] Pulse Oximetry 90 96 Oxygen Delivery Me thod Documenting provider has reviewed patient's vital signs: yes Course Vital Signs Vital signs: Initial Vital Signs Temperature 97.2 F L 04/29/24 20:51 Temperature Source Temporal Artery Scan 04/29/24 20:51 Pulse Rate 92 04/29/24 20:51 Pulse Rhythm Regular 04/29/24 20:51 Respiratory Rate 16 04/29/24 20:51 Blood Pressure 120/79 04/29/24 20:51 Blood Pressure Mean 92 04/29/24 20:51 Blood Pressure Position Semi-Fowlers 04/29/24 20:51 Pulse Oximetry 98 04/29/24 20:51 Oxygen Delivery Method Room Air 04/29/24 20:51 Vital Signs Temperature 97.2 F L 04/29/24 20:51 Pulse Rate 92 04/29/24 20:51 Respiratory Rate 16 04/29/24 20:51 Blood Pressure 120/79 04/29/24 20:51 Pulse Oximetry 98 04/29/24 20:51 Oxygen Delivery Method Room Air 04/29/24 20:51 Temperature 97.2 F L 04/29/24 20:51 Pulse Rate 81 04/29/24 22:45 Respiratory Rate 16 04/29/24 22:02 Blood Pressure 124/83 04/29/24 22:32 Pulse Oximetry 96 04/29/24 22:45 Oxygen Delivery Method Room Air 04/29/24 22:02 Medications Administered Medications: Discontinued Medications Generic Name Dose Route Start Last Admin Trade Name Evelio PRN Reason Stop Dose Admin Sodium Chloride 500 mls @ 1,000 mls/hr 04/29/24 21:22 04/29/24 21:33 0.9 % Sodium Chloride 500 Ml IV 04/29/24 21:51 1,000 mls/hr .Q30M ONE Administration Medical Decision Making MDM Narrative Medical decision making narrative: Given history and presentation I would for suspect excessive medication intake leading to sedation. There is certainly may have been head injury as well. Does not seem to have infectious etiology but encephalopathy/encephalitis in differential. Does not appear to have focal symptoms to suggest ischemic cerebrovascular event. Appears to be dehydrated. Concern will be ability to care for self at this point. Family concerned about being able to care for her at the moment. Labs are pending. Normal saline bolus. Monitoring Labs are reassuring. Appears a little more alert. Only intervention is time and fluid bolus. Is slightly slurring her words intermittently still but focus is. I did discuss potentially staying for monitoring and further clearing. Was okay with this and as soon as I left the room then called out again saying that she wanted to go home. Had slid to the edge of the bed trying to get out with the rails up. Quite focused in her speech. Not slurring. Will need to test her for ambulation safety. Does not appear interested in detox otherwise. We did contact father who does not feel she is safe to be at home right now and unwilling to come get her. Ashley is now willing to would stay again. Discussed admission with hospitalist who was graciously accepting. Medical Records Medical records reviewed: Yes I reviewed the patient's medical records Lab Data Lab results reviewed: Yes I reviewed the patient's lab results Labs: Lab Results 04/29/24 04/29/24 Range/Units 21:05 21:07 WBC 4.03 L (4.50-11.00) K/uL RBC 3.95 L (4.00-5.20) m/uL Hgb 11.9 L (12.0-16.0) gm/dL Hct 37.1 (33.0-51.0) % MCV 94 (80-100) fL MCH 30 (26-34) pg MCHC 32 (32-36) gm/dL RDW Coeff of Tony 13.0 (11.5-15.5) % Plt Count 288 (140-440) K/uL Neut % (Auto) 49.9 (42.0-72.0) % Lymph % (Auto) 33.0 (20-44) % [place] % (Auto) 12.2 H (0.0-11.0) % Eos % (Auto) 4.2 (0.0-7.0) % Baso % (Auto) 0.7 (0.0-3.0) % Neut # (Auto) 2.00 (1.7-7.0) K/uL Lymph # (Auto) 1.30 (0.90-2.90) K/uL [place] # (Auto) 0.50 (0.00-0.90) K/UL Eos # (Auto) 0.20 (0.00-0.50) K/uL Baso # (Auto) 0.00 (0.00-0.30) K/uL Abs Immat Gran (auto) 0.00 (0.00-0.30) K/uL Imm/Tot Granulo (auto) 0.0 % Sodium 135 (135-149) mmol/L Potassium 4.1 (3.6-5.1) mmol/L Chloride 103 (96-114) mmol/L Carbon Dioxide 24 (20-32) mmol/L Anion Gap 8 (7-15) mEq/L BUN 12 (7-30) mg/dL Creatinine 0.7 (0.5-1.5) mg/dL Estimated Creat Clear 105.08 Estimated GFR 104 ml/min Glucose 79 (60-115) mg/dL Lactate 1.1 (0.5-1.9) mmol/L Calcium 8.2 L (8.4-10.6) mg/dL Total Creatine Kinase 87 (41-117) U/L Troponin I < 0.01 L (0.01-0.04) ng/mL C-Reactive Protein < 0.5 L (0.5-1.0) mg/dL Urine Color Yellow (Yellow) Urine Appearance Clear (Clear) Urine pH 6.0 (5.0-8.5) Ur Specific [place] 1.025 (1.000-1.030) Urine Protein Negative (Negative) Urine Glucose (UA) Negative (Negative) Urine Ketones Negative (Negative) Urine Blood Negative (Negative) Urine Nitrite Negative (Negative) Urine Bilirubin Negative (Negative) Urine Urobilinogen 0.2 (0.2-1.0) Ur Leukocyte Esterase Negative (Negative) Urine RBC 0-2 (0-2) Urine WBC 5-10 A (0-5) Ur Squamous Epith Cells Moderate A (None-Few) Urine Bacteria Many A (None) Salicylates < 1.0 L (1.0-10) mg/dL Urine Opiates Screen POSITIVE A (Negative) Ur Oxycodone Screen POSITIVE A (Negative) Urine Methadone Screen Negative (Negative) Acetaminophen < 10.0 L (10.0-30.0) ug/mL Ur Barbiturates Screen Negative (Negative) U Tricyclic Antidepress Negative (Negative) Ur Phencyclidine Scrn Negative (Negative) Ur Amphetamines Screen Negative (Negative) U Methamphetamines Scrn Negative (Negative) U Benzodiazepines Scrn Negative (Negative) Urine Cocaine Screen Negative (Negative) U Marijuana (THC) Screen Negative (Negative) Ur Drug Screen Comment See Note Ethyl Alcohol < 0.01 L (0.01-0.03) % ECG Data Attestation: I personally reviewed and interpreted this ECG as follows: (Junctional rhythm. Do not appreciate acute ischemic event. Rate 87. Was in normal sinus in July of 2019) Discharge Plan Discharge Clinical Impression: AMS (altered mental status) Patient Disposition: Admitted As Observation Condition: Stable
--- NOTE | 2024-04-29 21:22 | CRLHL7_ITS ---
For Patients: As a result of the Century Cures Act, medical imaging exams and procedure reports are released immediately into your electronic medical record. You may view this report before your referring provider. If you have questions, please contact your health care provider. Indication: Altered mental status Technique: Noncontrast CT through the head with multiplanar reformats Comparison: None Findings: Brain: Questionable hypodensity in the right cerebellum versus streak artifact. No definite acute infarct. No acute hemorrhage. No significant mass effect or midline shift. Partially empty and expanded sella. Ventricles: No acute abnormality appreciated. Orbits, sinuses, mastoids: No acute abnormality appreciated. Calvarium and soft tissues: No acute abnormality appreciated. Impression: Question hypodensity in the right cerebellum versus streak artifact. This does occur within or adjacent to an area of streak degradation, but is slightly asymmetric to the contralateral side. MRI could be considered if there is strong clinical suspicion for cerebellar symptoms. No other acute abnormality appreciated. Please note that all CT scans at this facility use dose modulation, iterative reconstruction, and/or weight-based dosing when appropriate to reduce radiation dose to as low as reasonably achievable. Dictated by Montez Cruz MD @ 04/29/2024 10:18:09 PM (Electronically Signed)
[2024-04-29 21:27] LABS: Cannabinoid Screen Urine Negative (Negative); Cocaine Screen Urine Negative (Negative); Methamphetamines Screen Urine Negative (Negative); Opiate Screen Urine POSITIVE (Negative); Phencyclidine Screen Urine Negative (Negative)
[2024-04-29 21:28] LABS: Amphetamine Screen Urine Negative (Negative); Barbiturate Screen Urine Negative (Negative); Benzodiazepines Screen Urine Negative (Negative); Methadone Screen Urine Negative (Negative); Oxycodone Screen Urine POSITIVE (Negative); Tricyclic Antidepressant Urine Negative (Negative)
[2024-04-29 21:33] LABS: Lactate* 1.1 mmol/L (0.5-1.9)
[2024-04-29] MEDS: 0.9 % SODIUM CHLORIDE 500 ML 500 ML 1000 ML IV (21:33)
[2024-04-29 21:34] LABS: Basophils Percent Auto 0.7 % (0.0-3.0); Eosinophils Percent Auto 4.2 % (0.0-7.0); Hematocrit 37.1 % (33.0-51.0); Hemoglobin* 11.9 gm/dL (12.0-16.0); Mean Corpuscular HGB Conc 32 gm/dL (32-36); Mean Corpuscular Hemoglobin 30 pg (26-34); Mean Corpuscular Volume 94 fL (80-100); Monocytes Percent Auto 12.2 % (0.0-11.0); Neutrophils Percent Auto 49.9 % (42.0-72.0); Platelet Count* 288 K/uL (140-440); Red Blood Count 3.95 m/uL (4.00-5.20); White Blood Count* 4.03 K/uL (4.50-11.00)
[2024-04-29 21:35] LABS: Appearance Urine Clear (Clear); Bilirubin Urine Negative (Negative); Blood Urine Negative (Negative); Color Urine Yellow (Yellow); Glucose Urine Negative (Negative); Ketones Urine Negative (Negative); Leukocyte Esterase Urine Negative (Negative); Nitrite Urine Negative (Negative); Protein Urine Negative (Negative); Specific Gravity Urine 1.025 (1.000-1.030); Urobilinogen Urine 0.2 (0.2-1.0)
[2024-04-29 21:36] LABS: Chloride* 103 mmol/L (96-114); Potassium* 4.1 mmol/L (3.6-5.1); Sodium* 135 mmol/L (135-149)
[2024-04-29 21:38] LABS: Slide Review Reflex No
[2024-04-29 21:39] LABS: Anion Gap 8 mEq/L (7-15); Blood Urea Nitrogen* 12 mg/dL (7-30); Carbon Dioxide* 24 mmol/L (20-32); Creatine Kinase* 87 U/L (41-117); Creatinine* 0.7 mg/dL (0.5-1.5); Est. Creatinine Clearance* 105.08; Estimated Glomerular Filt Rate 104 ml/min; Glucose* 79 mg/dL (60-115)
[2024-04-29 21:40] LABS: Calcium* 8.2 mg/dL (8.4-10.6)
[2024-04-29 21:46] LABS: Acetaminophen* < 10.0 ug/mL (10.0-30.0); C Reactive Protein* < 0.5 mg/dL (0.5-1.0); Ethanol* < 0.01 % (0.01-0.03); Salicylate* < 1.0 mg/dL (1.0-10)
[2024-04-29 21:49] LABS: Bacteria Urine Many; RBC Urine 0-2 (0-2); Squamous Epithelial Cell Urine Moderate (None-Few)
--- OUTSIDE RECORDS SUMMARY | 2024-04-29 21:56 | XMS_ITS | Patient Health Record ---
Author Organization [facility] Address [address] [place] [address] Care Team Providers Care Game Producer Name Role Phone DEBRA COPELAND Unavailable [phone] Reason For Referral No Information Plan Of Treatment No Information Insurance Providers Payer Name Payer Address Payer Phone Subscriber Number Group Number Insured Name Patient Relationship to Insured Coverage Start Date Coverage End Date [facility] [address] [place], [place] [id number] Ashley Salazar Self - patient is the insured
--- OUTSIDE RECORDS SUMMARY | 2024-04-29 21:56 | XMS_ITS | Clinical Summary ---
Author Organization [facility] Address [place], [place] [address] Care Team Providers Care Sales Enablement Consultant Name Role Phone Adele Rodriguez Primary Care Provider Hodan Joseph RN Unavailable [phone] Francisco Tate MD Unavailable [phone] Allergies Active Allergy Reactions Criticality Noted Date Comments Naproxen Rash Medium 08/21/2007 Dicyclomine Anaphylaxis High 01/11/2016 Swelling of tongue and difficulty speaking Clindamycin Nausea And Vomiting,Headache 09/25/2019 Lactase Nausea And Vomiting 05/10/2016 Duloxetine Nausea And Vomiting 11/19/2009 Lactose Nausea And Vomiting 05/10/2016 Lactulose Nausea And Vomiting 05/10/2016 Latex Rash 11/28/2014 Metoclopramide Anaphylaxis High 10/18/2016 Mold Extracts Runny Nose 08/08/2006 Gabapentin Vomiting,Nausea And Vomiting 05/15/2008 Nsaids (Non-Steroidal Anti-Inflammatory Drug) Other - Describe In Comment Field 08/26/2020 H/o mary-n-y gastric bypass. AVOID NSAIDs and aspirin due to risk of gastric and/or G-J anastomotic ulcers. If Ashley must be on short course of NSAIDs or aspirin, use enteric coated if possible and use PPI // Hodan Bradley RN, Bariatric Nurse Clinician, [facility] 08/26/2020 Penicillins Nausea Only,Headache,Hives 08/08/2006 Omeprazole Itching 05/05/2007 Hands got hot, and a bad headache Proton Pump Inhibitors Headache,Rash 05/10/2016 Metoclopramide Hcl Anaphylaxis High 01/11/2016 Swollen tongue and difficulty speaking Soybean Nausea And Vomiting,Headache 01/07/2016 Migraine headache Buprenorphine-Naloxone Anaphylaxis High 03/14/2023 Sulfa (Sulfonamide Antibiotics) Headache,Nausea Only 04/11/2003 Headache Cimetidine Palpitations,Headach e 08/08/2006 Trichophyton Mentagrophytes Allergenic Extract Headache 05/10/2016 Medications Medication Sig Dispensed Refills Start Date End Date Status cyanocobalamin (VITAMIN B12) 1,000 mcg sublingual tabletIndications:A chlorhydria Place 1 Tablet (1,000 mcg) under the tongue once daily. 30 Tablet 1 Active calcium citrate-vitamin D3, 315 mg-250 units, (Sabine Calcium-Vitamin D3) 315 mg-6.25 mcg (250 unit) tab tabletIndications:B ariatric surgery status Take 1500mg daily in divided doses with meals 90 Tablet 1 Active cholecalciferol (VITAMIN D3) 5,000 unit capsuleIndications: Bariatric surgery status Take 1 Capsule (5,000 units) by mouth once daily. 40 units = 1 mcg (5000 units = 125 mcg) 30 Capsule 1 Active pediatric multivitamins-iron 18 mg chewable (Childrens Multivitamins/Iron) chewable tabletIndications:A chlorhydria,Bariatr ic surgery status Chew 2 Tablets by mouth once daily. 60 Tablet 1 Active ketoconazole 2% shampoo (NIZORAL) 2 % shampooIndications: Tinea capitis Apply topically to affected area(s) once daily if needed for Dry Scalp. Lather on damp scalp, leave on for 5min, then rinse with water. 120 mL 3 Active fluticasone (50 mcg per actuation) nasal solution (FLONASE)Indication s:Allergic rhinitis due to pollen, unspecified seasonality SHAKE LIQUID AND USE 1 SPRAY IN EACH NOSTRIL TWICE DAILY Strength: 50 mcg/actuation 48 g 3 3 Active ondansetron (ZOFRAN ODT) 4 mg disintegrating tabletIndications:O pioid withdrawal (HC) Place 2 Tablets (8 mg) on the tongue every 8 hours if needed for Nausea/Vomiting. 30 Tablet 3 Active naloxone (Narcan) 4 mg/actuation nasal sprayIndications:De generation of lumbar or lumbosacral intervertebral disc,Fibromyalgia,P ain medication agreement Inhale 1 [place] into affected nostril(s) each time if needed for Patient Diff To Arouse or Resp Rate < 8 / min. Additional doses may be given every 2 to 3 minutes until emergency medical assistance arrives. 2 Each 3 Active rizatriptan (MAXALT) 10 mg tabletIndications:M igraine syndrome Give at minimum 2hrs apart. Max Dose: 30mg per 24hrs.TAKE 1 TABLET BY MOUTH EVERY 2 HOURS NEEDED FOR MIGRAINE. GIVE AT MINIMUM 2HRS APART. MAX DOSE: 30MG PER 24HRS. 12 Tablet 5 4 Active eszopiclone (LUNESTA) 3 mg tabletIndications:I nsomnia, idiopathic Take 1 Tablet (3 mg) by mouth at bedtime. 30 Tablet 3 4 Active pregabalin (LYRICA) 150 mg capsuleIndications: Degeneration of lumbar or lumbosacral intervertebral disc,Fibromyalgia TAKE 1 CAPSULE BY MOUTH THREE TIMES A DAY 90 Capsule 2 4 Active carisoprodoL (SOMA) 350 mg tabletIndications:M uscle spasm,Muscle spasm of back TAKE 1 TABLET BY MOUTH THREE TIMES A DAY 90 Tablet 4 Active oxyCODONE-acetamino phen (Percocet) 5-325 mg per tabletIndications:D egeneration of lumbar or lumbosacral intervertebral disc,Fibromyalgia Take 1 Tablet by mouth every 6 hours if needed for Pain. Max acetaminophen dose: 4000mg in 24 hrs. 120 Tablet 4 Active carisoprodoL (SOMA) 350 mg tabletIndications:M uscle spasm,Muscle spasm of back TAKE 1 TABLET BY MOUTH THREE TIMES A DAY 90 Tablet 4 04/24/20 24 Discontinu ed(Reorder (E-cancel not sent)) oxyCODONE-acetamino phen (Percocet) 5-325 mg per tabletIndications:D egeneration of lumbar or lumbosacral intervertebral disc,Fibromyalgia Take 1 Tablet by mouth every 6 hours if needed for Pain. Max acetaminophen dose: 4000mg in 24 hrs. 120 Tablet 4 04/24/20 24 Discontinu ed(Reorder (E-cancel not sent)) Active Problems Patient Care Coordination No te Formatting of this note is d ifferent from the original. Nutrition order entered on 10/02/2020. Still needs a manual when has first in-person visit Weight Management - Adult Surgical Program Initial Consult 11/02/2019 Dr. Juan Bradley, RN is the Bariatric Nurse Clinician. Intake: Wt Readings from Last 1 Encounters: 11/10/19 (!) 160 kg (352 lb 12.8 oz) lbs Planned Operation Mary-en-Y Gastric Bypass Payor: / No coverage found. Est. Pgm Completion: May, Procedure Location: [facility] Co-morbidities: To be determined Orders: Labs Yes H.pylori and tsh- Lab ok 01/24/20 Ultrasound- GB out in 1994 Pre-Surgery Program Consults: - Registered Dietitian Shilpi 04/15/20 henry helm - Psychological Evaluation: anshul 04/25/20 Problem Noted Date Diagnosed Date Paroxysmal SVT (supraventricular tachycardia) Paroxysmal SVT (supraventricular tachycardia) Pain medication agreement 08/09/2022 Uncomplicated opioid dependence 06/30/2016 Overview (09/11/2020): Overview: Opioid weaning with Tori Sanchez APRN, CNPBC Irritable bowel syndrome without diarrhea 2015 Adenomatous colon polyp 01/08/2016 Overview (01/08/2016): Colonoscopy 12/2015 polyp repeat in 5 years GERD (gastroesophageal reflux disease) 3 Overview (12/06/2012): EGD 11/2012 normal Migraine 08/11/2012 Hypertriglyceridemia 08/10/2011 Family history of malignant neoplasm of gastrointestinal tract 07/08/2011 Overview (07/08/2011): Colonoscopy 06/2011 normal repeat in 5 years Morbid obesity 09/29/2010 Fibromyalgia 09/29/2010 Chronic pain 10/31/2009 Insomnia 10/31/2009 Insomnia, unspecified 06/17/2008 Degeneration of lumbar or lumbosacral interverte bral disc 05/15/2008 Myalgia and myositis, unspecified 09/24/2006 Overview (09/24/2006): Pain meds only from [facility] Condyloma acuminatum 09/24/2006 Resolved Problems Problem Noted Date Diagnosed Date Resolved Date s/p laparoscopic Mary-en-Y gastric bypass 08/25/2020 08/09/2022 Morbid obesity with BMI of 50.0-59.9, adult 11/02/2019 08/09/2022 H/O vaginal hysterectomy 06/16/2018 Controlled substance agreement terminated 09/14/2016 08/09/2022 Fungal rash of torso 08/19/2016 023 AMA (advanced maternal age) multigravida 35+ 7 08/09/2022 Medication exposure during f irst trimester of 06/21/2016 08/09/2022 Uterine congenital anomaly in 06/21/2016 08/09/2022 care, subsequent 04/22/2016 08/09/2022 Chest wall pain 01/12/2016 08/09/2022 Allergic reaction caused by a drug 01/11/2016 08/09/2022 Ventricular fibrillation see n on custom miller 01/11/2016 09/18/2021 Accidental medication error 01/11/2016 08/09/2022 Elderly primigravida in first trimester 06/04/2015 08/09/2022 Body mass index 40.0-44.9, adult 09/30/2010 08/09/2022 Overdose 10/31/2009 08/09/2022 Acute respiratory failure 10/31/2009 Altered mental status 10/30/20092022 Osteoarthrosis, unspecified whether generalized or localized, unspecified site 11/10/2007 08/09/2022 Unspecified backache 09/15/2007 023 Sciatica 08/21/2007 08/09/2022 Obesity, unspecified 04/06/2007 023 UTI (urinary tract infection) 09/15/2004 08/09/2022 Overview (09/11/2020): Problem list name updated by automated process. Provider to review Other specified disorder of skin 04/11/2003 08/09/2022 Encounters Date Type Department Care Team Description 04/26/2024 Refill [facility] [address] [place] [address] Adele Rodriguez PA Refill Request (CARISOPRODOL) 04/24/2024 Telephone [facility] [address] [place] [address] Adele Rodrigeuz PA Follow Up (for oxyCODONE-acetamino phen (Percocet) 5-325 mg per tablet) 03/30/2024 Nurse Triage [facility] [address] [place] [address] Adele Rodriguez PA Confusion; Slurred Speech 03/22/2024 Telephone [facility] [address] [place] [address] Adele Rodriguez PA Referral (UROGYNECOLOGY) 03/07/2024 10:29 AM CDT - 03/07/2024 11:59 PM CDT Hospital Encounter [address] [address] Visit for screening mammogram 03/07/2024 Travel 03/06/2024 Telephone [facility] [address] [place] [address] Adele Rodriguez PA Refill Request (pregabalin (LYRICA) 150 mg capsule) 03/05/2024 Refill [facility] [address] [place] [address] Adele Rodriguez PA Refill Request (Pregabalin) 03/02/2024 Refill [facility] [address] [place] [address] Adele Rodriguez PA Refill Request (Pregabalin) 02/01/2024 1:20 PM CDT Office Visit [facility] [address] [place] [address] Adele Rodriguez PA Medication Management (medication check); Form (County form to fill out) 02/01/2024 Travel 01/31/2024 Refill [facility] [address] [place] [address] Adele Rodriguez PA Refill Request (Carisoprodol) 01/31/2024 Refill [facility] [address] [place] [address] Adele Rodriguez PA Refill Request (Carisoprodol) from Last 3 Months Immunizations Name Administration Dates Next Due DTaP 10/19/1979 Polio Virus, Unspecified 10/19/1979 Tdap 09/20/2016,10/11/2009 Family History Medical History Relation Name Comments Good Health Brother 2 Cancer-colon Brother 3 Stage 4 Other Father Back problems/h eart arrythmia Nephrolithiasis Mother Other Mother Crohn's disease Stroke Paternal Grandmother Good Health Sister 2 Cancer-breast No Family History Cancer-ovarian No Family History Relation Name Status Comments Brother 1 Alive Brother 2 Brother 3 Father Alive Maternal Grandfather Maternal Grandmother Alive Mother Alive Paternal Grandfather Paternal Grandmother Sister 1 Alive Sister 2 Social History Tobacco Use Types Packs/Day Years Used Date Smoking Tobacco: Never Smokeless Tobacco: Never Tobacco Cessation:Counseling Given: Yes Alcohol Use Standard Drinks/Week Comments No 0 (1 standard drink = 0.6 oz pur e alcohol) PHQ-2 Answer Date Recorded PHQ-2 TOTAL SCORE 2 05/09/2023 Social Connections Answer Date Recorded Do you often feel lonely or isolated from those around you? 0 10/24/2023 Financial Resource Strain Answer Date R ecorded Difficulty of Paying Living Expenses 3 10/24/2023 Difficulty of Paying Living Expenses Not on file 10/24/2023 Food Insecurity Answer Date Recorded Do you worry your food will run out before you are able to buy more? 1 10/24/2023 Transportation Needs Answer Date Record ed Does lack of transportation keep you from medica l appointments? 1 10/24/2023 Does lack of transportation keep you from work, meetings or getting things that you need? 1 10/24/2023 Housing Stability Answer Date Recorded What is your housing situation today? 1 10/24/2023 Sex and Gender Information Value Date Recorded Sex Assigned at Not on file Gender Identity Not on file Sexual Orientation Not on file Obstetrics History Para Term AB IAB SAB Ectopic Multiple Livin g Live Births 3 1 1 2 1 1 1 Date Outcome GA Total Labor Labor/2nd/3rd Weight Sex Type Anes PTL Marianne A1 A5 Name Clin AB 2014 SAB 8w0 d Delivery Location:[place] Comments:D&C needed 2016 Term 39w 1d 2h 00m 0h 33m/1h 27m 2.24 kg (4 lb 15 oz) F Vag-S pont Epidur al Livin g 8 9 SALAZAR ,GIRL ASHLEY Espinoza Luis stone MD Delivery Location:[facility] Last Filed Vital Signs Vital Sign Reading Time Taken Comments Blood Pressure 130/85 02/01/2024 1:28 PM CDT Pulse 64 02/01/2024 1:28 PM CDT Temperature 37 ??C (98.6 ??F) 01/22/2024 9:41 AM CDT Respiratory Rate 20 01/22/2024 9:41 AM CDT Oxygen Saturation 100% 02/01/2024 1:28 PM CDT Inhaled Oxygen Concentration - - Weight 124.3 kg (274 lb) 02/01/2024 1:28 PM CDT Height 177.8 cm (5' 10) 03/14/2023 9:51 AM CDT Body Mass Index 39.31 03/14/2023 9:51 AM CDT Plan of Treatment Upcoming Encounters Date Type Department Care Team (Late st Contact Info) Description 05/14/2024 8:30 AM [facility] Office Visit [facility] [address] [place] [address] Adele Rodriguez PA [address] [place] [address] Health Maintenance Due Date Last Done Comments Colonoscopy through age 75 01/06/2021 01/07/2016, Zoster (shingles) series for age 50+ (1 of 2) 12/23/2021 COVID-19 vaccine series ( season) 2024 BMI (ht and wt on same day) for age 18+ 03/14/2024 03/14/2023, 02/24/2022, 10/30/2021, Additional history exists Depression screening for age 12+ 05/11/2024 05/11/2023, 05/11/2023, 05/09/2023, Additional history exists Lipids for age 45-75 01/16/2025 01/17/2020, 08/30/2018, 08/30/2018, Additional history exists Mammogram for age 45-75 03/07/2025 03/07/20 24, 12/09/2021, 08/18/2018, Additional history exists Tetanus booster 09/20/2026 09/20/2016, 0506/2009, 10/11/2009 Hepatitis C screening for age 18-79 Completed 05/19/2015, 04/23/2014 Tdap Completed 09/20/2016, 10/11/2009 HIV for age 15-65 Completed 05/29/2019, , 04/23/2014 Pneumococcal series for age 6-64 Aged Out No longer eligible based on patient's age to complete this topic Procedures Procedure Name Priority Date/Time Associated Diagnosis Comments XR MAMMO TERESA BILAT SCREEN Routine 03/07/2024 10:57 AM CDT Visit for screening mammogram LIPID PANEL W REFLEX MEASURED LDL Routine 01/17/2020 10:33 AM CDT Morbid obesity with BMI of 50.0-59.9, adult (HC) Gastroesophageal reflux disease, esophagitis presence not specified ANTI HIV 1/2 Routine 05/29/2019 11:13 AM [facility] Excessive sweating COLONOSCOPY 01/07/2016 8:57 AM CDT ANTI HCV Routine 05/19/2015 12:19 PM [facility] from Last 3 Months or Most Recently Relevant to Health Maintenance Results * XR MAMMO TERESA BILAT SCREEN (03/07/2024 10:57 AM CDT) Anatomical Region Laterality Modality BREASTS, Breast Left, Breast Right Bilateral Mammography Impressions 03/07/2024 2:43 PM CDT ??There is no radiographic evidence for malignancy. ??Recommend annual mammograms. MAMMOGRAM ASSESSMENT: ??ACR 2 Benign PATIENTS: You will also receive a letter with your examination results in an easy to read format. ??If you have questions about your results, please contact your referring provider. Narrative 03/07/2024 2:43 PM CDT For Patients: As a result of the Cures Act, medical imaging exams and procedure reports are released immediately into your electronic medical record. You may view this report before your referring provider. If you have questions, please contact your health care provider. XR MAMMO TERESA BILAT SCREEN [[id number]] CLINICAL HISTORY: ??This is an asymptomatic 53 y.o. patient. INDICATION FOR EXAM: Mammogram Screening. TECHNIQUE: CC & MLO views were obtained. ??This study was evaluated with the assistance of Computer-Aided Detection. Breast Tomosynthesis was used in interpretation. COMPARISON FILMS: [facility] ?? FINDINGS: ??The breasts are heterogeneously dense, which may obscure small masses. ??No suspicious masses or microcalcifications. ??There is a benign appearing asymmetry of both breasts. Adele XIE MAMMO * (ABNORMAL) LIPID PANEL W REFLEX MEASURED LDL [[id number]] (01/17/2020 10:33 AM CDT) CHOLESTEROL,TOTAL 162 100 - 199 mg/dL 01/17/2020 11:07 AM T [facility] TRIGLYCERIDES 299(H) <150 mg/dL 01/17/2020 11:07 AM CDT [facility] HDL CHOLESTEROL 36(L) >40 mg/dL 0 11:07 AM CDT [facility] NON-HDL CHOLESTEROL 126 <145 mg/dl 01/17/2020 11:07 AM CDT [facility] CHOL/HDL RATIO 4.50(H) <4.50 01/17/2020 11:07 AM T [facility] LDL CHOLESTEROL 66 <=130 mg/dL 01/17/2020 11:07 AM T [facility] PROVIDER ORDERED STATUS RANDOM 01/17/2020 11:07 AM T [facility] Blood BLOOD SPECIMEN / Unknown Venipuncture / Unknown 01/17/2020 10:33 AM CDT 01/17/2020 10:36 AM CDT Francisco Tate MD CHEMISTRY Performing Organization Address City/[facility] Care [facility]/ZIP Co de Phone Number [facility] [address] [place] [address] * ANTI HIV 1/2 (05/29/2019 11:13 AM [facility]) HIV-1/HIV-2 ANTIBODY Non-Reacti ve Non-Reacti ve 05/29/2019 6:34 PM [facility] Comment:HIV-1 p24 and HIV-1/ HIV-2 Ab not detected. Blood BLOOD SPECIMEN / Unknown Venipuncture / Unknown 05/29/2019 11:13 AM [facility] 05/29/2019 11:13 AM [facility] Adele XIE SEND OUTS [facility] [address] [place] [address], [place] * COLONOSCOPY (01/07/2016 8:57 AM CDT) 01/07/2016 8:57 AM CDT Narrative 01/07/2016 8:57 AM CDT Patient Name: Ashley Salazar ?Procedure Date: 01/07/2016 ? Gender: Female ? Date of : 1970 Admit Type: Outpatient ? Procedure: ?Colonoscopy Proceduralist: ?Osito Ely MD Indications/Pre-Op Diagnosis: Abdominal pain in the right lower quadrant, ?Family history of Crohn's disease in a ?first-degree relative Medications: ?Fentanyl 300 micrograms IV, Midazolam 6 mg IV, ?The level of sedation administered was minimal ? Procedure Description: ? The patient had risks, benefits and alternatives explained to and gave ? informed consent. The patient had a stable cardiopulmonary status and ? judged an adequate candidate for conscious sedation. ? The PCF-Q290AL [id number] was passed through the anus and advanced to the ? terminal ileum. The colonoscopy was technically difficult and complex ? due to significant looping, a tortuous colon and the patient's body ? habitus. Successful completion of the procedure was aided by applying ? abdominal pressure and performing the maneuvers documented (below) in ? this report. The patient tolerated the procedure fairly well. The ? quality of the bowel preparation was excellent. The terminal ileum, the ? ileocecal valve and the rectum were photographed. During the procedure ? the patient had to be repositioned to the prone position. ? Complications: ?No immediate complications. Estimated Blood Loss & Specimen: ? Estimated blood loss: none. Specimen collected - Yes and sent to ? Laboratory ? Findings: ? The perianal and digital rectal examinations were normal. ? The terminal ileum appeared normal. ? A 4 mm polyp was found in the proximal ascending colon. The polyp was ? pedunculated. The polyp was removed with a cold snare. Resection and ? retrieval were complete. ? The exam was otherwise without abnormality on direct and retroflexion ? views. ? Impressions/Post-Op Diagnosis: ? - The examined portion of the ileum was normal. ? - One 4 mm polyp in the proximal ascending colon. Resected and retrieved. ? - The examination was otherwise normal on direct and retroflexion views. ? Recommendation: ? - Patient has a contact number available for emergencies. The signs and ? symptoms of potential delayed complications were discussed with the ? patient. Return to normal activities tomorrow. Written discharge ? instructions were provided to the patient. ? - Resume previous diet. ? - Continue present medications. ? - Await pathology results. ? - Repeat colonoscopy is recommended. The colonoscopy date will be ? determined after pathology results from today's exam become available ? for review. Future exam would need to be done with propofol. ? Osito Ely MD 01/07/2016 10:24:25 AM This report has been signed electronically. Note Initiated On: 01/07/2016 8:57 AM Procedure Code(s): ?--- Professional --- ?80732, Colonoscopy, flexible; with removal of ?tumor(s), polyp(s), or other lesion(s) by snare ?technique Diagnosis Code(s): ?--- Professional --- ?D12.2, Benign neoplasm of ascending colon ?R10.31, Right lower quadrant pain ?Z83.79, Family history of other diseases of the ?digestive system CPT copyright 2015 [employer]. All rights reserved. The codes documented in this report are preliminary and upon lace stripper review may be revised to meet current compliance requirements. Scope In: 9:06:55 AM Scope Withdrawal Time 0 hours 23 minutes 55 seconds Scope Out: 10:06:31 AM Procedure Note Osito Ely MD - 01/07/2016 10:24 AM CDT Patient Name: Ashley Salazar Procedure Date: 01/07/2016 Gender: Female Date of : 1970 Admit Type: Outpatient Procedure: Colonoscopy Proceduralist: Osito Ely MD Indications/Pre-Op Diagnosis: Abdominal pain in the right lower quadrant, Family history of Crohn's disease in a first-degree relative Medications: Fentanyl 300 micrograms IV, Midazolam 6 mgIV, The level of sedation administered wasminimal Procedure Description: The patient had risks, benefits and alternatives explained to andgave informed consent. The patient had a stable cardiopulmonary status and judged an adequate candidate for conscious sedation. The PCF-Q290AL [id number] was passed through the anus and advanced tothe terminal ileum. The colonoscopy was technically difficult and complex due to significant looping, a tortuous colon and the patient's body habitus. Successful completion of the procedure was aided by applying abdominal pressure and performing the maneuvers documented (below) in this report. The patient tolerated the procedure fairly well. The quality of the bowel preparation was excellent. The terminal ileum,the ileocecal valve and the rectum were photographed. During theprocedure the patient had to be repositioned to the prone position. Complications: No immediate complications. Estimated Blood Loss & Specimen: Estimated blood loss: none. Specimen collected - Yes and sent to Laboratory Findings: The perianal and digital rectal examinations were normal. The terminal ileum appeared normal. A 4 mm polyp was found in the proximal ascending colon. The polyp was pedunculated. The polyp was removed with a cold snare. Resection and retrieval were complete. The exam was otherwise without abnormality on direct and retroflexion views. Impressions/Post-Op Diagnosis: - The examined portion of the ileum was normal. - One 4 mm polyp in the proximal ascending colon. Resected andretrieved. - The examination was otherwise normal on direct and retroflexionviews. Recommendation: - Patient has a contact number available for emergencies. The signsand symptoms of potential delayed complications were discussed with the patient. Return to normal activities tomorrow. Written discharge instructions were provided to the patient. - Resume previous diet. - Continue present medications. - Await pathology results. - Repeat colonoscopy is recommended. The colonoscopy date will be determined after pathology results from today's exam become available for review. Future exam would need to be done with propofol. Osito Ely MD 01/07/2016 10:24:25 AM This report has been signed electronically. Note Initiated On: 01/07/2016 8:57 AM Procedure Code(s): --- Professional --- 03447, Colonoscopy, flexible; with removalof tumor(s), polyp(s), or other lesion(s) bysnare technique Diagnosis Code(s): --- Professional --- D12.2, Benign neoplasm of ascending colon R10.31, Right lower quadrant pain Z83.79, Family history of other diseases ofthe digestive system CPT copyright 2015 [employer]. All rights reserved. The codes documented in this report are preliminary and upon lace stripper reviewmay be revised to meet current compliance requirements. Scope In: 9:06:55 AM Scope Withdrawal Time 0 hours 23 minutes 55 seconds Scope Out: 10:06:31 AM Osito Ely MD PROCEDURE ORD * ANTI HCV (05/19/2015 12:19 PM WOOL GROWER) HEPATITIS C ANTIBODY Non-Reacti ve Non-Reacti ve 05/19/2015 7:30 PM WOOL GROWER [facility] Blood specimen (specimen) BLOOD SPECIMEN / Unknown Venipuncture / Unknown 05/19/2015 12:19 PM WOOL GROWER 05/19/2015 12:19 PM WOOL GROWER Narrative [facility] - 05/19/2015 7:30 PM WOOL GROWER Antibodies to HCV not detected; does not exclude the possibility of exposure to HCV. Adele XIE SEND OUTS [facility] [address] [place] [address], from Last 3 Months or Most Recently Relevant to Health Maintenance Advance Directives * Full Code (Latest Code Status on File) Date Activated Date Inactivated Comments 08/25/2020 8:46 AM 08/26/2020 3:57 PM Question Answer Comments Code Status Discussion: Not Discussed * Full Code Date Activated Date Inactivated Comments 01/11/2016 8:15 PM 01/12/2016 2:27 PM Question Answer Comments Code Status Discussion: Discussed * Full Code Date Activated Date Inactivated Comments 10/30/2009 7:45 PM 11/01/2009 12:55 PM Care Teams Sales Enablement Consultant Relationship Specialty Start Date End Date Adele Rodriguez PA [address] [place] [address] PCP - General Family Practice 03/28/17 Hodan Joseph RN [address] [address] Nurse Clinician 11/19/19 Francisco Tate MD [address] [address] Surgery - General 11/19/19
--- OUTSIDE RECORDS SUMMARY | 2024-04-29 21:56 | XMS_ITS | Encounter Summary ---
Author Organization [place] Address [address] [facility] [place] [address] Care Team Providers Care Winder Hand Name Role Phone Adele Rodriguez Primary Care Provider [phone] Encounter Details Date Type Department Care Team (Late st Contact Info) Description 06/14/2018 Orders Only [facility] [address] [place] [id number] Judi Torres MD [address] [id number] Pre-operative laboratory examination (Primary Dx) Social History Tobacco Use Types Packs/Day Years Used Date Smoking Tobacco: Never Smokeless Tobacco: Never Alcohol Use Standard Drinks/Week Comments No 0 (1 standard drink = 0.6 oz pur e alcohol) Comments No Sex and Gender Information Value Date Recorded Sex Assigned at Not on file Legal Sex Female 3:21 AM HAND DEICER ELEMENT WINDER Gender Identity Not on file Sexual Orientation Not on file documented as of this encounter Plan of Treatment Not on file documented as of this encounter Results * ABO/Rh type and screen (06/15/2018 12:55 PM HAND DEICER ELEMENT WINDER) ABO A 06/15/2018 1:32 PM HAND DEICER ELEMENT WINDER [facility] RH(D) Pos [facility] Antibody Screen Neg 06/15/2018 1:32 PM HAND DEICER ELEMENT WINDER [facility] Test Valid Only At [facility] 06/15/2018 1:34 PM HAND DEICER ELEMENT WINDER [facility] Specimen Expires 06/18/2018 06/15/2018 1:34 PM HAND DEICER ELEMENT WINDER [facility] Blood specimen (specimen) 06/15/2018 12:55 PM HAND DEICER ELEMENT WINDER 06/15/2018 12:56 PM HAND DEICER ELEMENT WINDER us Judi Torres MD LAB - BLOOD BANK TEST ORDER Martha perez Result [facility] [address] [phone] documented in this encounter Visit Diagnoses Diagnosis Pre-operative laboratory examination- Primary Pre-procedural laboratory examination documented in this encounter Care Teams Winder Hand Relationship Specialty Start Date End Date Adele Rodriguez PCP - General Physician Adjuster Arbitrator 06/07/18 documented as of this encounter
--- OUTSIDE RECORDS SUMMARY | 2024-04-29 21:56 | XMS_ITS | Clinical Summary ---
Author Organization [place] Address [address] [facility] [place] [address] Care Team Providers Care Toll Gate Keeper Name Role Phone Adele Rodriguez Primary Care Provider [phone] Allergies Active Allergy Reactions Criticality Noted Date Comments Naproxen Rash Low 06/14/2018 Dicyclomine Anaphylaxis High 06/14/2018 Cimetidine 04/11/2003 irregular heartbeat Duloxetine Nausea and Vomiting 06/14/2018 Gabapentin Nausea and Vomiting 06/14/2018 Latex Rash Low 06/14/2018 Mold Other (See Comments) 06/14/2018 Runny nose Penicillins Nausea 04/11/2003 Headache; hives Omeprazole Itching 06/14/2018 Hands got hot; bad headache Proton Pump Inhibitors Rash Low 06/14/2018 headache Metoclopramide Anaphylaxis High 06/14/2018 Sulfa Antibiotics Nausea 04/11/2003 Headache Cimetidine Other (See Comments) 06/14/2018 Palpitations & headache Trichophyton Other (See Comments) 06/14/2018 headache Medications carisoprodol (SOMA) 350 MG tablet Take 350 mg by mouth 3 times daily Active fluticasone (FLONASE) 50 MCG/ACT nasal spray [place] 2 sprays into both nostrils daily Active loratadine (CLARITIN) 10 MG tablet Take 10 mg by mouth daily Active meloxicam (MOBIC) 15 MG tablet Take 15 mg by mouth daily Active pregabalin (LYRICA) 50 MG capsule Take 50 mg by mouth 2 times daily Active sertraline (ZOLOFT) 50 MG tablet Take 50 mg by mouth daily Active sucralfate (CARAFATE) 1 GM tablet Take 1 g by mouth 2 times daily Before meals Active tiZANidine (ZANAFLEX) 4 MG tablet Take 4 mg by mouth every 6 hours as needed for muscle spasms Active traZODone (DESYREL) 100 MG tablet Take 100 mg by mouth At Bedtime Active HYDROcodone-acet aminophen (NORCO) 5-325 MG tabletIndication s:H/O vaginal hysterectomy Take 1 tablet by mouth every 6 hours as needed for severe pain Maximum 4000mg acetaminophen in 24 hours. 30 tablet 06/17/19 19 Active SUMAtriptan (IMITREX) 25 MG tabletIndication s:Nonintractable migraine, unspecified migraine type Take 1 tablet (25 mg) by mouth at onset of headache for migraine (May repeat dose in 2 hours if migraine persists) 10 tablet 06/17/19 19 Active Active Problems Problem Noted Date Diagnosed Date H/O vaginal hysterectomy 06/16/2018 UTI (urinary tract infection) 09/15/2004 Overview (03/13/2015): Problem list name updated by automated process. Provider to review Other specified disorder of skin 04/11/2003 Myalgia and myositis 04/11/2003 Overview (03/13/2015): Problem list name updated by automated process. Provider to review Social History Tobacco Use Types Packs/Day Years Used Date Smoking Tobacco: Never Smokeless Tobacco: Never Alcohol Use Standard Drinks/Week Comments No 0 (1 standard drink = 0.6 oz pur e alcohol) Comments No Sex and Gender Information Value Date Recorded Sex Assigned at Not on file Legal Sex Female 3:21 AM STOCK PATCHER Gender Identity Not on file Sexual Orientation Not on file Last Filed Vital Signs Vital Sign Reading Time Taken Comments Blood Pressure 144/58 06/17/2018 1:00 PM STOCK PATCHER Pulse 79 06/16/2018 5:51 PM STOCK PATCHER Temperature 36.8 ??C (98.2 ??F) 06/17/2018 1:00 PM CS T Respiratory Rate 18 06/17/2018 4:46 PM STOCK PATCHER Oxygen Saturation 93% 06/17/2018 1:00 PM STOCK PATCHER Inhaled Oxygen Concentration - - Weight 142.9 kg (315 lb) 06/16/2018 8:24 AM STOCK PATCHER Height 180.3 cm (5' 10.98) 06/16/2018 8:[address] Body Mass Index 43.95 06/16/2018 8:24 AM STOCK PATCHER Plan of Treatment Not on file Advance Directives For more information, please contact: [phone] * Full Code (Latest Code Status on File) Date Activated Date Inactivated Comments 06/16/2018 5:50 PM 06/17/2018 9:08 PM Question Answer Comments Code status determined by: Discussion with wolfgang nt/legal decision maker * Full Code Date Activated Date Inactivated Comments 06/16/2018 5:50 PM 06/16/2018 5:50 PM Question Answer Comments Code status determined by: Discussion with wolfgang nt/legal decision maker Care Teams Toll Gate Keeper Relationship Specialty Start Date End Date Adele Rodriguez PCP - General Physician Viscose Cellar Worker 06/07/18
--- OUTSIDE RECORDS SUMMARY | 2024-04-29 21:56 | XMS_ITS ---
Author Organization [facility] Address [address] [place] [address] Care Team Providers Care Medical Superintendent Name Role Phone Adele Rodriguez Primary Care Provider Unavailab Oanh Antoine [phone] REASON FOR VISIT Prolapse consults, Sx/s:, Onset:, LMP:, BC:, ELSI CALZADA Encounters Encounter Location Date Provider Diagnosis [facility] [address] [place] [address] 03/16/2024 Oanh Noyola Plan Of Treatment No Information Progress Notes * Ashley SALAZARDOB:1970 (53 yo F)Acc No.[id number]:03/16/2024 Patient:?Ashley SALAZAR Provider:?Oanh Noyola DNP :1970???Age:53 Y???Sex:Female D ate:03/16/2024 Address:[address] [place], [place] [id number] Pcp:Adele Rodriguez Subjective: * Chief Complaints: * ???1. Prolapse consults. 2. Sx/s:. 3. Onset:. 4. LMP:. 5. BC:. 6. ELSI CALZADA. * HPI: ???Pelvic Organ Prolapse:?Pelvic Organ Prolapse HPI?Patient presents today for concern of pelvic organ prolapse. Symptoms today include:?vaginal bulge * ROS:?Urinary:?Urge urinary incontinence?Denies.?Stress urinary incontinence?Denies.?Urinary urgency?Denies.?Urinary frequency?Denies.?Urinary hesitancy?Denies.?Feeling of incomplete bladder emptying?Denies.?Double voids? Denies.?Gastrointestinal:?Constipation?Denies.?Stool trapping? Denies.?Difficulty with defecation?Denies.?Perineal splinting? Denies.?Fecal incontinence?Denies.?Prolapse:?Vaginal bulge?Denies.?Pelvic pressure?Denies.?Pelvic heaviness? Denies.?Sexual function:?Pain with intercourse?Denies.?History of sexual abuse or trauma?Denies.?Currently sexually active?Denies.?Pelvic pain:?Pelvic pain?Denies.?Other:?Implanted electronic pediatric medical assistant?Denies.? * Medical History:?Medical His tory Verified. * Medications:?None Objective: * Vitals:? * Examination: ???*General Examination: ?UROGYN EXAM? Assessment: Plan: * Treatment: * Images: Billing Information: * Visit Code:? * Procedure Codes:? * Electronic signature of Liliana Noyola CNP on 04/29/2024 at 09:56 PM CODIFIER Sign off status: Pending * Provider:?Oanh Noyola DNP Date:? 024 Generated for Ryani amalia/Jose/eTransmitting on:?04/29/2024 09:56 PM CODIFIER History and Physical Notes * HPI (History of Present Illness) Category Sub-Category Detail Notes Pelvic Organ Prolapse Pelvic Organ Prolapse HPI Patient presents today for concern of pelvic organ prolapse. Symptoms today include:: vaginal bulge Examination Category Sub-Category Detail Notes *General Examination UROGYN EXAM General: well appear ing, no acute distress HEENT: head atraumatic, normocephalic, n carina supple Abdomen: soft, non-tender, non-distended , no mass palpated External genitalia: normal i n appearance,sensation is intact bilaterally,reflexes are present bilaterally Vagina: normal without lesion Cervix: no cervical motion tenderness,no rmal without lesion Uterus: normal in size, non-tender Adnexa: without tenderness or mass Pelvic floor muscles: normal tone bilateral, non-tender bilateral Pelvic floor muscle strength (oxford scale 0- unable to find muscles - 5 strong contraction with sufficient hold duration): 3 Urethra: normal, without mass, non-tende r Bladder: non-tender Urethral hypermobility: present Cough stress test: negative POP-Q: Aa Ba C D Ap Bp GH T VL PB Rectal exam: deferred
--- OUTSIDE RECORDS SUMMARY | 2024-04-29 21:56 | XMS_ITS ---
Author Organization [facility] Address [address] [place] [address] Care Team Providers Care Elevator Examiner Name Role Phone Adele Rodriguez Primary Care Provider Oanh Phelps [phone] REASON FOR VISIT POP consult, Sx/s:, Previous Tx:, LMP:, BC:, ELSI HOLLAND Encounters Encounter Location Date Provider Diagnosis [facility] [address] [place] [address] 04/24/2024 Oanh Noyola Plan Of Treatment No Information Progress Notes * Ashley SALAZARDOB:1970 (53 yo F)Acc No.[id number]:04/24/2024 Patient:?Ashley SALAZAR Provider:?Oanh Noyola DNP :1970???Age:53 Y???Sex:Female D ate:04/24/2024 Address:[address] [place], [place] [phone] Pcp:Adele Rodriguez Subjective: * Chief Complaints: * ???1. POP consult. 2. Sx/s:. 3. Previous Tx:. 4. LMP:. 5. BC:. 6. ELSI HOLLAND. * Medical History:?Medical His tory Verified. * Family History:?No Family Hi story documented..? * Medications:?None Objective: * Vitals:? Assessment: Plan: * Treatment: * Images: Billing Information: * Visit Code:? * Procedure Codes:? * Electronic signature of Liliana Noyola CNP on 04/29/2024 at 09:55 PM WIENER PACKER Sign off status: Pending * Provider:?Oanh Noyola DNP Date:? 024 Generated for Zachery holland/Jose/Darryl on:?04/29/2024 09:55 PM WIENER PACKER
--- OUTSIDE RECORDS SUMMARY | 2024-04-29 21:56 | XMS_ITS | Patient Health Record ---
Author Organization [facility] Address [address] [place] [address] Care Team Providers Care Supervisor Customer Records Division Name Role Phone Adele Rodriguez Primary Care Provider UnavailOanh Randle Unavailable [phone] Reason For Referral No Information Plan Of Treatment No Information Insurance Providers Payer Name Payer Address Payer Phone Subscriber Number Group Number Insured Name Patient Relationship to Insured Coverage Start Date Coverage End Date Self Pay [id number] [place] [id number] Ashley Salazar Self - patient is the insured
--- OUTSIDE RECORDS SUMMARY | 2024-04-29 21:56 | XMS_ITS | Referral Summary ---
Author Organization [place] Address [address] [facility] [place] [address] Care Team Providers Care Coal Dumping Equipment Operator Name Role Phone Adele Rodriguez Primary Care Provider [phone] Allergies Active Allergy Reactions Criticality Noted Date [...] Active fluticasone (FLONASE) 50 MCG/ACT nasal spray [place] 2 sprays into both nostrils daily Active [...] on file Legal Sex Female 3:21 AM DEATH CLEARANCE COORDINATOR Gender Identity Not on file Sexual Orientation Not on file Last Filed Vital Signs Vital Sign Reading Time Taken Comments Blood Pressure 144/58 06/17/2018 1:00 PM DEATH CLEARANCE COORDINATOR Pulse 79 06/16/2018 5:51 PM DEATH CLEARANCE COORDINATOR Temperature 36.8 ??C (98.2 ??F) 06/17/2018 1:00 PM CS T Respiratory Rate 18 06/17/2018 4:46 PM DEATH CLEARANCE COORDINATOR Oxygen Saturation 93% 06/17/2018 1:00 PM DEATH CLEARANCE COORDINATOR Inhaled Oxygen Concentration - - Weight 142.9 kg (315 lb) 06/16/2018 8:24 AM DEATH CLEARANCE COORDINATOR Height 180.3 cm (5' 10.98) 06/16/2018 8:[address] Body Mass Index 43.95 06/16/2018 8:24 AM DEATH CLEARANCE COORDINATOR Plan of Treatment Not on file Advance Directives For more information, please contact: [phone] * Full Code (Latest Code Status on File) Date Activated Date Inactivated Comments 06/16/2018 5:50 PM 06/17/2018 9:08 PM Question Answer Comments Code status determined by: Discussion with wolfgang nt/legal decision maker * Full Code Date Activated Date Inactivated Comments 06/16/2018 5:50 PM 06/16/2018 5:50 PM Question Answer Comments Code status determined by: Discussion with wolfgang nt/legal decision maker Care Teams Coal Dumping Equipment Operator Relationship Specialty Start Date End Date Adele Rodriguez PCP - General Physician [place] Tin Roller 06/07/18
--- OUTSIDE RECORDS SUMMARY | 2024-04-29 21:56 | XMS_ITS | Clinical Summary ---
Author Organization [facility] [employer] [facility] Address [address] [place] [address] Care Team Providers Care Business Analytics Analyst Name Role Phone Provider, No Attributed RESOURCE Unavailable Unavailable Evelia Ross DNP, ANIMAL STUNNER, IT TRAINING SPECIALIST Primary Care Provi [email or web address] Allergies Active Allergy Reactions Criticality Noted Date Comments Dicyclomine Anaphylaxis (High) High 10/18/2016 Gabapentin Enacarbil Nausea and Vomiting 2015 Milk/Dairy Products Nausea and Vomiting 016 Trichophyton Mentagrophytes Headache 05/10/20 16 Proton Pump Inhibitors Rash,Headache 05/10/2016 Metoclopramide Anaphylaxis (High) High 10/18/2016 Sulfa Drugs Headache 05/10/2016 Cimetidine Headache 05/10/2016 Medications fluticasone (FLONASE) 50 mcg/spray nasal sprayIndications :Nasal congestion [place] 1 puff into each nostril 2 times a day 1 Bottle 6 7 Active sucralfate (CARAFATE) 1 Gm tabletIndication s:Gastroesophage al reflux disease without esophagitis TAKE 1 TABLET (1 G) BY MOUTH 2 TIMES A DAY 120 tablet 1 7 Active baclofen (LIORESAL) 10 mg tabletIndication s:Low back pain with right-sided sciatica, unspecified back pain laterality, unspecified chronicity Take 1 tablet (10 mg) by mouth 3 times a day 12 tablet 7 Active diclofenac sodium (VOLTAREN) 75 mg delayed-release (enteric coated) tabletIndication s:Low back pain with right-sided sciatica, unspecified back pain laterality, unspecified chronicity Take 1 tablet (75 mg) by mouth 2 times a day 10 tablet 7 Active methylPREDNISolo ne (MEDROL DOSEPAK) 4 MG tabletIndication s:Low back pain with right-sided sciatica, unspecified back pain laterality, unspecified chronicity Take as directed on package. 1 packet 7 Active Active Problems Problem Noted Date Diagnosed Date Controlled substance agreement terminated 2016 Overview (01/04/2017): 01/04/2017 Discontinued pain agreement per medication therapy completion. 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 Elderly primigravida ([facility]) 06/10/2016 care, subsequent ([facility]) Resolved Problems Problem Noted Date Diagnosed Date Resolved Date Pain medication agreement signed 06/30/2016 01/04/2017 Obesity (BMI 30-39.9) 06/29/20162016 Immunizations Immunization Administration Dates Next Due TDAP 09/20/2016 Family History Medical History Relation Comments No Known Problems Brother Muscular Dystrophy Cousin No Known Problems FOB Alcohol Abuse Father Atrial fibrillation Father Leukemia Maternal Grandfather Dementia Maternal Grandmother Hearing Loss Maternal Grandmother Schizophrenia Maternal Grandmother Crohn Disease Mother Lung Cancer Paternal Aunt non-smoker Emphysema Paternal Grandfather Heart Paternal Grandmother wanted to p ut in a pacemaker but never did Stroke Paternal Grandmother Graves' disease Paternal Half Sister Not otherwise listed - Cancer Paternal Uncle 1 Not otherwise listed - Cancer Paternal Uncle 2 Defects Neg Hx Cleft lip Neg Hx Cleft palate Neg Hx Congenital Heart Disease Neg Hx Spina Bifida Neg Hx Relation Status Comments Brother Alive Cousin Alive FOB Alive Father Alive Maternal Grandfather Maternal Grandmother Alive Mother Alive Paternal Aunt Paternal Grandfather (Age 38) emphysema Paternal Grandmother (Age 98) Paternal Half Sister Alive Paternal Uncle 1 Paternal Uncle 2 Alive Social History Tobacco Use Types Packs/Day Years Used Date Smoking Tobacco: Never Smokeless Tobacco: Never Alcohol Use Standard Drinks/Week Comments No 0 (1 standard drink = 0.6 oz pur e alcohol) PHQ-2 Answer Date Recorded PHQ-2 Score 1 05/14/2018 Sexually Active Control Partners Comments Yes None Male Comments No Sex and Gender Information Value Date Recorded Sex Assigned at Not on file Legal Sex Female 12:48 PM CDT Gender Identity Not on file Sexual Orientation Not on file Occupation Industry Job Start Date Job End Date Homemaker Not on file Not on file Not on file Last Filed Vital Signs Vital Sign Reading Time Taken Comments Blood Pressure 127/77 01/05/2017 7:19 PM CDT Pulse 81 01/05/2017 7:19 PM CDT Temperature 36.7 ??C (98 ??F) 01/05/2017 7:19 PM CDT Respiratory Rate 22 01/05/2017 7:19 PM CDT Oxygen Saturation 97% 01/05/2017 7:19 PM CDT Inhaled Oxygen Concentration - - Weight 147.8 kg (325 lb 14.4 oz) 01/05/2017 7:19 PM CDT Height 181.6 cm (5' 11.5) 12/23/2016 3:05 PM CD T Body Mass Index 44.82 12/23/2016 3:05 PM CDT Plan of Treatment Health Maintenance Due Date Last Done Comments Hepatitis C Screening 1970 Hepatitis B Vaccine (1 of 3 - 19+ 3-dose series) 12/23/1990 Pap Smear 12/23/1992 Lipid Screening 2011 Mammogram 2011 Colorectal Cancer Screening 12/23/2016 Diabetes Screening 12/23/2016 Zoster Vaccine (1 of 2) 12/23/2021 Covid-19 Vaccine (1 - 2023-2 5 season) 2024 Influenza Vaccine (#1) 2024 TDAP/TD VACCINE (2 - Td or Tdap) 09/20/2026 09/21/19 17 HIV One Time Screening Ages 15-65 Completed 017 Pneumococcal Vaccine (0-5yr; and At-risk 6-64 yr) Aged Out No longer eligible b ased on patient's age to complete this topic Procedures Procedure Name Priority Date/Time Associated Diagnosis Comments HIV SCREEN REFLEX TO CONFIRMATION Routine 08/26/2016 1:39 PM CDT care, subsequent , second trimester from Last 3 Months or Most Recently Relevant to Health Maintenance Results * HIV-1/2 ANTIBODY EIA (08/26/2016 1:39 PM CDT) HIV 1 Ag HIV 1/2 Ab Nonreactive Nonreactive 08/26/2016 5:19 PM CDT [facility] Blood BLOOD SPECIMEN / Unknown Venipuncture / Unknown 08/26/2016 1:39 PM CDT 08/26/2016 1:39 PM CDT Dexter Florenec MD LAB BLOOD Final Result Performing Organization Address City/State/[facility] Co de Phone Number [address] [address] from Last 3 Months or Most Recently Relevant to Health Maintenance Advance Directives For more information, please contact: [phone] * Full Code (Latest Code Status on File) Date Activated Date Inactivated Comments 12/18/2016 2:21 PM 12/20/2016 5:50 PM Care Teams Business Analytics Analyst Relationship Specialty Start Date End Date Provider, No Attributed, RESOURCE [address] PCP - Attributed Provider 04/06/19 Evelia Ross, DNP, ANIMAL STUNNER, IT TRAINING SPECIALIST [address] [place] [address] PCP - General 05/07/19
--- OUTSIDE RECORDS SUMMARY | 2024-04-29 21:56 | XMS_ITS | Encounter Summary ---
Author Organization [facility] Address [address] [place] [address] Care Team Providers Care Medicaid Specialist Name Role Phone Evelia Ross DNP, APRN, RAY Primary Care Provi krzysztof Tori Sanchez APRN,SHAZIA Unavailable +06-19 Tori Sanchez APRN,SHAZIABC Unavailable [phone] Dexter Florence MD Unavailable [phone] Tori Sanchez APRN,CNPBC Unavailable [phone] Dexter Florence MD Unavailable [phone] Provider, No Attributed RESOURCE Unavailable Unavailable Evelia Ross DNP, APRN, RAY Primary Care Provi krzyzstof Encounter Details Date Type Department Care Team (Late st Contact Info) Description 07/26/[address] [facility] [address] [place] [phone] Ирина Reyes APRN-COMMUNICATIONS SUPERINTENDENT [id number] [place] [id number] Pain in throat Social History Tobacco Use Types Packs/Day Years Used Date Smoking Tobacco: Never Smokeless Tobacco: Never Alcohol Use Standard Drinks/Week Comments No 0 (1 standard drink = 0.6 oz pur e alcohol) Sexually Active Control Partners Comments Yes None Male Comments Yes Sex and Gender Information Value Date Recorded Sex Assigned at Not on file Legal Sex Female 12:48 PM CDT Gender Identity Not on file Sexual Orientation Not on file Occupation Industry Job Start Date Job End Date Homemaker Not on file Not on file Not on file documented as of this encounter Functional Status * Do you have difficulty with walking, balance, climbing stairs, or had a fall in the last 3 months? Answer Date of Assessment Author No 06/02/2016 11:[address] KalebMee castro LPN documented as of this encounter Plan of Treatment Not on file documented as of this encounter Visit Diagnoses Diagnosis Pain in throat Throat pain documented in this encounter Care Teams Medicaid Specialist Relationship Specialty Start Date End Date Evelia Ross, DNP, [employer] [address] [place] [phone] PCP - General 06/24/16 05/06/19 Tori Sanchez APRN,[facility] [address] [place] [phone] PCP - Insurance Required [employer] - Family Medicine 09/07/16 12/15/22 Tori Sanchez APRN,[facility] [address] [place] [address] PCP - Attributed Provider 09/07/1612/12 Dexter Florence MD [address] [place], [place] [phone] PCP - Attributed Provider 01/09/1702/12 Tori Sanchez APRN,[facility] [address] [place] [address] PCP - Attributed Provider 03/10/1712/12 Dexter Florence MD [address] [place], [place] [phone] PCP - Attributed Provider 01/05/19 Provider, No Attributed, RESOURCE [address] PCP - Attributed Provider 04/06/19 Evelia Ross, DNP, [employer] [address] [place] [phone] PCP - General 05/07/19 documented as of this encounter
[2024-04-29 22:16] LABS: Troponin I* < 0.01 ng/mL (0.01-0.04)
--- NOTE | 2024-04-29 23:13 | P.IMHP_ITS ---
Hospitalist- H&P: HPI History of Present Illness Date Seen: 04/29/24 Chief complaint: altered mental status Narrative: Ashley Salazar is a 53 year old female who presented to the ER by ambulance (called by family). She has had increased psychomotor slowing over the past few days, no known falls or injury. Per ER team: family notes that this has happened in the past (patient has taken more than her prescribed # of Percocet daily) and it has taken days for her to recover fully. Chart review: Oxycodone-APA: #120 of 5-325mg filled 04/26/24 Carisoprodol: #90 350mg tabs filled 04/26/24 Eszopiclone: #30 3mg tabs filled 04/23/24 Lyrica: #90 of 150mg tablets filled 04/02/24 ER Course and Findings: - question of hypodensity in R cerebellum vs streak artifact, mild asymmetry. Consider MRI pending clinical symptoms - reassuring labs, UTox + for opiates Father refused to take patient home given obtundation and history. Upon arrival to the floor, patient is awake and answering questions appropriately. Ashley denies any recent injury or falls, states pain is currently at her basel ine. We discussed her risk for polypharmacy at length and she was told that she will not be receiving opiates at this time, and she verbalized understanding. Histories reviewed below. PCP Adele Rodriguez at [facility] locally. Review of Systems Status of ROS: Reports: 10 or more systems reviewed and unremarkable except as noted in History and below [facility] Medical History (Updated 04/29/24 @ 23:56 by Paula Orozco MD) Cystocele Mixed incontinence urge and stress ?N39.46 - Mixed incontinence (ICD-10) Fecal incontinence ?R15.9 - Full incontinence of feces (ICD-10) Ventricular fibrillation ?I49.01 - Ventricular fibrillation (ICD-10) PTSD (post-traumatic stress disorder) ?F43.10 - Post-traumatic stress disorder, unspecified (ICD-10) PONV (postoperative nausea and vomiting) ?R11.2 - Nausea with vomiting, unspecified (ICD-10) ?Z98.890 - Other specified postprocedural states (ICD-10) Osteoarthritis ?M19.90 - Unspecified osteoarthritis, unspecified site (ICD-10) Myositis ?M60.9 - Myositis, unspecified (ICD-10) GERD (gastroesophageal reflux disease) ?K21.9 - Gastro-esophageal reflux disease without esophagitis (ICD-10) Fibromyalgia ?M79.7 - Fibromyalgia (ICD-10) Endometriosis ?N80.9 - Endometriosis, unspecified (ICD-10) Lumbar disc disease ?M51.9 - Unspecified thoracic, thoracolumbar and lumbosacral intervertebral disc disorder (ICD-10) Condyloma acuminatum ?A63.0 - Anogenital (venereal) warts (ICD-10) Bicornuate uterus ?Q51.3 - Bicornate uterus (ICD-10) Adenomatous colon polyp ?D12.6 - Benign neoplasm of colon, unspecified (ICD-10) Chronic back pain ?M54.9 - Dorsalgia, unspecified (ICD-10) ?G89.29 - Other chronic pain (ICD-10) Migraine headache ?G43.909 - Migraine, unspecified, not intractable, without status migrainosus (ICD-10) Dental abscess ?K04.7 - Periapical abscess without sinus (ICD-10) Surgical History (Updated 04/29/24 @ 23:32 by Paula Orozco MD) S/P hernia repair ?Z98.890 - Other specified postprocedural states (ICD-10) ?Z87.19 - Personal history of other diseases of the digestive system (ICD-10) H/O hernia repair (04/04/23) ?Z98.890 - Other specified postprocedural states (ICD-10) ?Z87.19 - Personal history of other diseases of the digestive system (ICD-10) History of cholecystectomy ?Z90.49 - Acquired absence of other specified parts of digestive tract (ICD- 10) History of Kit-en-Y gastric bypass ?Z98.84 - Bariatric surgery status (ICD-10) Hx of hysterectomy ?Z90.710 - Acquired absence of both cervix and uterus (ICD-10) History of esophagogastroduodenoscopy (EGD) ?Z98.890 - Other specified postprocedural states (ICD-10) Abnormal colonoscopy ?R93.3 - Abnormal findings on diagnostic imaging of other parts of digestive tract (ICD-10) Social History (Updated 04/29/24 @ 23:51 by Paula Orozco MD) Narrative: Lives with father (MDM if needed), on disability 2/2 chronic pain. Nonsmoker, no illicit drug use. Full Code. Smoking Status: Never smoker Do you use any of these nicotine containing products: None How often do you have a drink containing alcohol: never How often do you have six or more drinks on one occasion: Never AUDIT-C Alcohol total score: 0 Non-prescribed substance use: denies use and other Non-prescribed substance use details: CBD Oil Caffeine: No Are you using contraception or practicing any form of control: No service: No Meds Home Medications and Allergies Home Medications ?Medication ?Instructions ?Recorded ?Confirmed ?Type carisoprodol 350 mg tablet 350 mg PO 3XD 08/23/22 04/29/24 History cholecalciferol (vitamin D3) 125 125 mcg PO DAILY 08/23/22 04/29/24 History mcg (5,000 unit) capsule fluticasone propionate 50 1 spray intranasal BID PRN 08/23/22 04/29/24 History mcg/actuation nasal spray,suspension oxycodone-acetaminophen 5 mg-325 1 tab PO Q6H PRN pain 08/23/22 04/29/24 History mg tablet pregabalin 150 mg capsule 150 mg PO TID 08/23/22 04/29/24 History cyanocobalamin (vitamin B-12) 1,000 mcg PO DAILY 04/01/23 04/29/24 History 1,000 mcg capsule loratadine 10 mg tablet (Claritin) 10 mg PO DAILY 04/01/23 04/29/24 History naloxone 4 mg/actuation nasal 1 spray intranasal Q2-3M PRN 04/01/23 04/29/24 History spray (Narcan) sumatriptan succinate 25 mg tablet 25 mg PO Q2-4H PRN 04/01/23 04/29/24 History (Imitrex) eszopiclone 3 mg tablet 3 mg PO QPM 04/29/24 04/29/24 History Allergies Allergy/AdvReac Type Severity Reaction Status Date / Time dicyclomine Allergy Severe Anaphylaxis Verified 03/20/24 09:27 metoclopramide Allergy Severe Anaphylaxis Verified 03/20/24 09:27 cimetidine Allergy Mild Unknown Verified 03/20/24 09:27 naproxen Allergy Mild Nausea Verified 03/20/24 09:27 duloxetine Allergy Unknown Unknown Verified 03/20/24 09:27 gabapentin Allergy Unknown Unknown Verified 03/20/24 09:27 lactase Allergy Unknown Unknown Verified 03/20/24 09:27 lactulose Allergy Unknown Unknown Verified 03/20/24 09:27 latex Allergy Unknown Unknown Verified 03/20/24 09:27 omeprazole Allergy Unknown Unknown Verified 03/20/24 09:27 Proton Pump Inhibitors Allergy Unknown Unknown Verified 03/20/24 09:27 penicillin V AdvReac Mild Nausea, QUINONEZ Verified 03/20/24 09:27 Milk derivatives Allergy Severe H/A, Uncoded 03/20/24 09:27 vomiting Soy Allergy Allergy Intermediate Migraine, Uncoded 03/20/24 09:27 QUINONEZ METOCLOPRAMIDE HCL Allergy Unknown Uncoded 03/20/24 09:27 Mold extracts Allergy Unknown Uncoded 03/20/24 09:27 TRICHOPHYTON MENTAGROPHYTES Allergy Unknown Uncoded 03/20/24 09:27 ALLERGE Sulfa drugs AdvReac Mild Uncoded 03/20/24 09:27 Exam Narrative: Exam Narrative: GEN: Awake and sitting at edge of bed, appears sleepy but answering questions appropriately HEENT: No scleral icterus, dentition poor without evidence of active infection, tongue protrudes midline CV: RRR, No concerning murmurs, rubs, or gallops R: LCTA bilaterally without wheezing Ext: wwp, no concerning edema Skin: No concerning skin lesions or rashes on exposed skin Neuro: Slow to understand directions during Neurological evaluation. Pupils react slowly bilaterally, EOMIs. No dysmetria on finger to nose testing, no resting tremor, negative Romberg Psych: No agitation, appropriate. Expresses understanding regarding plan for pain management Const: Vital Signs, click to edit/add: Vital Signs - 24 hr 04/29/24 20:51 04/29/24 21:04 04/29/24 21:15 Temperature 97.2 F L Pulse Rate 85 84 Pulse Rate [Right Pulse Oximeter] 92 Respiratory Rate 16 18 Blood Pressure 123/86 Blood Pressure [Le ft Upper Arm] 120/79 Pulse Oximetry 98 96 96 Oxygen Delivery Me thod Room Air Room Air 04/29/24 21:16 04/29/24 21:30 04/29/24 21:32 Temperature Pulse Rate 84 84 88 Pulse Rate [Right Pulse Oximeter] Respiratory Rate 18 Blood Pressure 124/96 H Blood Pressure [Le ft Upper Arm] Pulse Oximetry 97 99 98 Oxygen Delivery Me thod Room Air 04/29/24 21:33 04/29/24 21:45 04/29/24 22:00 Temperature Pulse Rate 90 80 80 Pulse Rate [Right Pulse Oximeter] Respiratory Rate Blood Pressure Blood Pressure [Le ft Upper Arm] Pulse Oximetry 96 99 96 Oxygen Delivery Me thod 04/29/24 22:02 04/29/24 22:20 04/29/24 22:30 Temperature Pulse Rate 82 79 78 Pulse Rate [Right Pulse Oximeter] Respiratory Rate 16 Blood Pressure 114/80 Blood Pressure [Le ft Upper Arm] Pulse Oximetry 97 92 [facility] 04/29/24 22:32 04/29/24 22:45 Temperature Pulse Rate 85 81 Pulse Rate [Right Pulse Oximeter] Respiratory Rate Blood Pressure 124/83 Blood Pressure [Le ft Upper Arm] Pulse Oximetry 90 96 [facility] - H&P: Result Labs Labs: Short CBC 04/29/24 Range/Units 21:05 WBC 4.03 L (4.50-11.00) K/uL Hgb 11.9 L (12.0-16.0) gm/dL Hct 37.1 (33.0-51.0) % Plt Count 288 (140-440) K/uL BMP 04/29/24 21:05 Sodium 135 Potassium 4.1 Chloride 103 Carbon Dioxide 24 BUN 12 Creatinine 0.7 Glucose 79 Calcium 8.2 L Cardiac Enzymes 04/29/24 Range/Units 21:05 Total Creatine Kinase 87 (41-117) U/L Troponin I < 0.01 L (0.01-0.04) ng/mL Urine 04/29/24 Range/Units 21:05 Urine Color Yellow (Yellow) Urine Appearance Clear (Clear) Urine pH 6.0 (5.0-8.5) Ur Specific [employer] 1.025 (1.000-1.030) Urine Protein Negative (Negative) Urine Glucose (UA) Negative (Negative) Assessment and Plan Assessment and plan (1) AMS (altered mental status): Problem comment: - presumably 2/2 polypharmacy given history - possible abnormality on head CT, consider MRI given clinical picture in the morning - therapies ordered Status: Acute (2) Polypharmacy: Problem comment: - concerning presentation and history for medication misuse - hold opiates, Eszopiclone, and Carisoprodol on admission - reassess status in the morning Status: Acute (3) Chronic pain: Problem comment: - scheduled APAP + prn Vistaril overnight - therapies ordered Status: Acute (4) Opioid dependence: Status: Acute (5) Abnormal head CT: Problem comment: - formal radiology read below - PT/OT evaluations ordered, consider MRI pending clinical course - CT 04/29/24: Question hypodensity in the right cerebellum versus streak artifact. This does occur within or adjacent to an area of streak degradation but is slightly asymmetric to the contralateral side. MRI could be considered if there is strong clinical suspicion for cerebellar symptoms. No other acute abnormality appreciated Status: Acute Plan - per above
[2024-04-30] VITALS (13 sets, daily range): BP systolic 128–146; BP diastolic 72–110; PULSE 71–95; RESP 18–22; TEMP 36.4–37.1; O2SAT 92–98
[2024-04-30] MEDS: ACETAMINOPHEN 325 MG TABLET 975 MG PO (04:07)
--- NOTE | 2024-04-30 06:44 | PC.NURSE ---
END OF SHIFT NOTE: PT A&Ox3. DENIES CP, SOB, N/V. AMBULATES SBA WITH GB-INDEPENDENT. VSS ON RA; AFEBRILE. C/O CHRONIC BACK PAIN 03/22 ADMINISTERED PRN TYLENOL AND APPLIED ICE TO SITE WITH LITTLE RELIEF. PT WITH DELAYED/SLURRED SPEECH IN INITIAL ASSESSMENT, WHICH HAS NOW CLEARED. DRINKING AND VOIDING APPROPRIATELY. CALL LIGHT WITHIN PT?S REACH.
[2024-04-30] MEDS: SODIUM CHLORIDE 0.9 % (FLUSH) 10 ML SYRINGE 5 ML IVF ×2 (09:09→21:03)
[2024-04-30] MEDS: OxyCODONE/APAP 5-325 TABLET 1 TAB PO ×3 (09:41→21:55)
[2024-04-30] MEDS: PREGABALIN 75 MG CAPSULE 150 MG PO ×3 (09:41→21:02)
--- NOTE | 2024-04-30 11:28 | PM.IMPN1 ---
Progress Note: A&P Assessment and plan (1) AMS (altered mental status): Problem details: - presumably 2/2 polypharmacy given history - possible abnormality on head CT - therapies ordered - given new need for ambulatory assistive device and complaint of dizziness when trying to walk, I ordered an MR scan of the brain without contrast on 04/30/2024 - check orthostatic blood pressures and pulses Status: Acute (2) Polypharmacy: Problem details: - concerning presentation and history for medication misuse - hold opiates, Eszopiclone, and Carisoprodol on admission - has been on opiates and carisoprodol for number of years. Started on eszopiclone about 1 week ago. This is likely medication, in combination with her chronic medications, that caused this episode of altered mental status, obtundation, somnolence. - restart oxycodone and carisoprodol 04/30/2024. Stop the Lunesta. - she will need follow-up with her physicians. Status: Acute (3) Chronic pain: Problem details: - scheduled APAP + prn Vistaril overnight - therapies ordered Status: Acute (4) Opioid dependence: Problem details: - restart her usual dose of oxycodone morning of 04/30/2024 Status: Acute (5) Abnormal head CT: Problem details: - formal radiology read below - PT/OT evaluations ordered, consider MRI pending clinical course - CT 04/29/24: Question hypodensity in the right cerebellum versus streak artifact. This does occur within or adjacent to an area of streak degradation but is slightly asymmetric to the contralateral side. MRI could be considered if there is strong clinical suspicion for cerebellar symptoms. No other acute abnormality appreciated - given patient's persistent sense of unsteadiness on feet and dizziness in combination with the findings on the CT scan on 04/29/2024, I ordered an MR scan of head on 04/30/2024 for further assessment Status: Acute Plan 1. Reviewed my impression and recommendations with the patient 2. Recommend more time for stabilization of the patient and acquisition of additional data including orthostatic blood pressures and pulses an MR scan of the brain and time to reassess after more time has elapsed 3. If condition stabilizes or continues to improve then I anticipate she will be able to be discharged as early as 05/01/2024 4. Answered patient's questions are satisfaction 5. Patient agreeable with above stated plans and recommendations Time Spent With Patient Total time spent: 40 minutes Subjective Date Seen: 04/30/24 Interval history: Hospital day 2. Admission history of present illness: ?Ashley Salazar is a 53 year old female who presented to the ER by ambulance (called by family). She has had increased psychomotor slowing over the past few days, no known falls or injury. Per ER team: family notes that this has happened in the past (patient has taken more than her prescribed # of Percocet daily) and it has taken days for her to recover fully. ?Chart review: Oxycodone-APA: #120 of 5-325mg filled 04/26/24 Carisoprodol: #90 350mg tabs filled 04/26/24 Eszopiclone: #30 3mg tabs filled 04/23/24 Lyrica: #90 of 150mg tablets filled 04/02/24 ?ER Course and Findings: - question of hypodensity in R cerebellum vs streak artifact, mild asymmetry. Consider MRI pending clinical symptoms - reassuring labs, UTox + for opiates ?Father refused to take patient home given obtundation and history. Upon arrival to the floor, patient is awake and answering questions appropriately. Ashley denies any recent injury or falls, states pain is currently at her baseline. We discussed her risk for polypharmacy at length and she was told that she will not be receiving opiates at this time, and she verbalized understanding. ?Histories reviewed below. PCP Adele Rodriguez at [facility] locally.? Awake today. Little recollection about yesterday's events. Notes a sense of lightheadedness and unsteadiness on her feet that she does not ordinarily have. Not interested in eating due to decreased appetite at this time. Denies focal motor neurologic deficits. No other localizing signs or symptoms. As I confer with her she indicates she has been on the same medications for number of years except for the Lunesta which was started about 1 week ago. Exam Narrative: Exam Narrative: I examine her in her hospital room. Appears comfortable and in no acute distress. With standby assist she is able to transfer from supine to sitting and sitting to standing. With use of walker she is able to walk albeit slowly and with complaint of dizziness. Lungs are clear to auscultation. Heart tones with regular rhythm. Abdomen with active bowel sounds, soft, nontender. Extremities without edema. Broad-based station. No tremor. No obvious asterixis. No overt ataxia. Const: Vital Signs, click to edit/add: Vital Signs - 24 hr 04/29/24 20:51 04/29/24 21:04 04/29/24 21:15 Temperature 97.2 F L Pulse Rate 85 84 Pulse Rate [Pulse Oximeter] Pulse Rate [Right Pulse Oximeter] 92 Respiratory Rate 16 18 Blood Pressure 123/86 Blood Pressure [Le ft Arm] Blood Pressure [Le ft Upper Arm] 120/79 Pulse Oximetry 98 96 96 Oxygen Delivery Me thod Room Air Room Air 04/29/24 21:16 04/29/24 21:30 04/29/24 21:32 Temperature Pulse Rate 84 84 88 Pulse Rate [Pulse Oximeter] Pulse Rate [Right Pulse Oximeter] Respiratory Rate 18 Blood Pressure 124/96 H Blood Pressure [Le ft Arm] Blood Pressure [Le ft Upper Arm] Pulse Oximetry 97 99 98 Oxygen Delivery Me thod Room Air 04/29/24 21:33 04/29/24 21:45 04/29/24 22:00 Temperature Pulse Rate 90 80 80 Pulse Rate [Pulse Oximeter] Pulse Rate [Right Pulse Oximeter] Respiratory Rate Blood Pressure Blood Pressure [Le ft Arm] Blood Pressure [Le ft Upper Arm] Pulse Oximetry 96 99 96 Oxygen Delivery Me thod 04/29/24 22:02 04/29/24 22:20 04/29/24 22:30 Temperature Pulse Rate 82 79 78 Pulse Rate [Pulse Oximeter] Pulse Rate [Right Pulse Oximeter] Respiratory Rate 16 Blood Pressure 114/80 Blood Pressure [Le ft Arm] Blood Pressure [Le ft Upper Arm] Pulse Oximetry 97 92 96 Oxygen Delivery Me thod Room Air 04/29/24 22:32 04/29/24 22:45 04/29/24 23:35 Temperature 97.8 F Pulse Rate 85 81 Pulse Rate [Pulse Oximeter] 83 Pulse Rate [Right Pulse Oximeter] Respiratory Rate 18 Blood Pressure 124/83 Blood Pressure [Le ft Arm] 139/91 H Blood Pressure [Le ft Upper Arm] Pulse Oximetry 90 96 100 Oxygen Delivery Me thod Room Air 04/29/24 23:35 04/30/24 01:50 04/30/24 04:00 Temperature Pulse Rate 84 Pulse Rate [Pulse Oximeter] 85 Pulse Rate [Right Pulse Oximeter] Respiratory Rate 18 18 Blood Pressure Blood Pressure [Le ft Arm] 140/93 H Blood Pressure [Le ft Upper Arm] Pulse Oximetry 100 98 Oxygen Delivery Me thod Room Air Room Air 04/30/24 08:00 04/30/24 08:06 04/30/24 09:17 Temperature 98.7 F Pulse Rate 77 Pulse Rate [Pulse Oximeter] 82 Pulse Rate [Right Pulse Oximeter] Respiratory Rate 18 18 Blood Pressure Blood Pressure [Le ft Arm] 139/72 Blood Pressure [Le ft Upper Arm] Pulse Oximetry 97 97 Oxygen Delivery [place] thod Room Air Room Air 04/30/24 09:34 Temperature Pulse Rate Pulse Rate [Pulse Oximeter] 82 Pulse Rate [Right Pulse Oximeter] Respiratory Rate 18 Blood Pressure Blood Pressure [Le ft Arm] Blood Pressure [Le ft Upper Arm] Pulse Oximetry Oxygen Delivery Az thod Labs Labs: Laboratory Results - last 24 hr 04/29/24 04/29/24 21:05 21:07 WBC 4.03 L RBC 3.95 L Hgb 11.9 L Hct 37.1 MCV 94 MCH 30 MCHC 32 RDW Coeff of Tony 13.0 Plt Count 288 Neut % (Auto) 49.9 Lymph % (Auto) 33.0 [place] % (Auto) 12.2 H Eos % (Auto) 4.2 Baso % (Auto) 0.7 Neut # (Auto) 2.00 Lymph # (Auto) 1.30 [place] # (Auto) 0.50 Eos # (Auto) 0.20 Baso # (Auto) 0.00 Abs Immat Gran (auto) 0.00 Imm/Tot Granulo (auto) 0.0 Sodium 135 Potassium 4.1 Chloride 103 Carbon Dioxide 24 Anion Gap 8 BUN 12 Creatinine 0.7 Estimated Creat Clear 105.08 Estimated GFR 104 Glucose 79 Lactate 1.1 Calcium 8.2 L Total Creatine Kinase 87 Troponin I < 0.01 L C-Reactive Protein < 0.5 L Urine Color Yellow Urine Appearance Clear Urine pH 6.0 Ur Specific [place] 1.025 Urine Protein Negative Urine Glucose (UA) Negative Urine Ketones Negative Urine Blood Negative Urine Nitrite Negative Urine Bilirubin Negative Urine Urobilinogen 0.2 Ur Leukocyte Esterase Negative Urine RBC 0-2 Urine WBC 5-10 A Ur Squamous Epith Cells Moderate A Urine Bacteria Many A Salicylates < 1.0 L Urine Opiates Screen POSITIVE A Ur Oxycodone Screen POSITIVE A Urine Methadone Screen Negative Acetaminophen < 10.0 L Ur Barbiturates Screen Negative U Tricyclic Antidepress Negative Ur Phencyclidine Scrn Negative Ur Amphetamines Screen Negative U Methamphetamines Scrn Negative U Benzodiazepines Scrn Negative Urine Cocaine Screen Negative U Marijuana (THC) Screen Negative Ur Drug Screen Comment See Note Ethyl Alcohol < 0.01 L
[2024-04-30] MEDS: LORazepam 2 MG/ML inj 0.5 MG IVP (13:16)
[2024-04-30] MEDS: FAMOTIDINE 20 MG TABLET PO (19:20)
[2024-04-30] MEDS: ONDANSETRON ODT 4 MG TAB PO (19:20)
--- NOTE | 2024-04-30 19:29 | PC.NURSE ---
End of Shift: Patient pleasant and cooperative, A&O. VSS, afebrile. Patient reports pain on her back and neck this shift, managed with PRN medication, see MAR. Patient reports n/v at the end of this shift, MD notified, PRN medication ordered. SBA with walker. Tele: NSR. Regular diet.
[2024-04-30] MEDS: cephALEXin 500 MG CAPSULE PO (21:02)
[2024-04-30] MEDS: hydrOXYzine pamoate 25 MG CAPSULE PO (21:02)
[2024-04-30] MEDS: MELATONIN 3 MG TABLET PO (21:55)
[2024-05-01 03:00] VITALS: BP 124/76; PULSE 74; RESP 18; TEMP 36.4; O2SAT 92
[2024-05-01] MEDS: OxyCODONE/APAP 5-325 TABLET 1 TAB PO ×2 (03:39→10:38)
--- NOTE | 2024-05-01 05:18 | PC.NURSE ---
End of shift report [id number]: Pleasant and cooperative with cares. Alert and oriented x 4, independent with ambulation. Pain reported to back and neck, patient reports minimal relief with current medications. At 2029 patient reporting tremors, visual tremors of hands while holding out, does not feel tremors in lower extremities. MD updated and scheduled medications administered. Visible tremors absent at 2230.
[2024-05-01 07:10] VITALS: PULSE 67
[2024-05-01 07:35] VITALS: BP 135/87; PULSE 70; RESP 16; TEMP 36.9; O2SAT 94
[2024-05-01] MEDS: PREGABALIN 75 MG CAPSULE 150 MG PO (08:53)
--- NOTE | 2024-05-01 08:53 | P.DS_ITS ---
DS: Providers Provider Date Seen: 05/01/24 Date of admission: 04/29/24 23:29 Primary care physician: Adele Rodriguez PA-C Admitting Clinician: Paula Orozco MD Attending Physician on discharge: Vicente Lowe MD Date of Discharge: 05/01/24 DS: Diagnosis Discharge Diagnosis (1) AMS (altered mental status): Status: Acute Problem details: - presumably due to polypharmacy with multiple high risk medications including oxycodone, carisoprodol, pregabalin and now Lunesta started a week ago. Mental status back to normal on the day of discharge - possible abnormality on head CT (2) Polypharmacy: Status: Acute Problem details: - concerning presentation and history for medication misuse - hold opiates, Eszopiclone, and Carisoprodol on admission - has been on opiates and carisoprodol for number of years. Started on eszopiclone about 1 week ago. This is likely medication, in combination with her chronic medications, that caused this episode of altered mental status, obtundation, somnolence. - restart oxycodone and carisoprodol 04/30/2024. Stop the Lunesta. - she will need follow-up with her primary care provider (3) Abnormal head CT: Status: Acute Problem details: - CT 04/29/24: Question hypodensity in the right cerebellum versus streak artifact. This does occur within or adjacent to an area of streak degradation but is slightly asymmetric to the contralateral side. MRI could be considered if there is strong clinical suspicion for cerebellar symptoms. No other acute abnormality appreciated - given patient's persistent sense of unsteadiness on feet and dizziness in combination with the findings on the CT scan on 04/29/2024, I ordered an MR scan of head on 04/30/2024 for further assessment (4) Chronic pain: Status: Acute Problem details: Continue home med therapy to avoid withdrawal symptoms (5) Opioid dependence: Status: Acute Problem details: - restart her usual dose of oxycodone morning of 04/30/2024 DS: Summary Hospital Course Hospital Course: 53-year-old female brought to the hospital for altered mental status. Her family gave history that this had developed a couple days prior to admission. They reported this is happened with medication overuse in the past. Patient tells me today that she thinks this is due to the foot onset of a prescription for Lunesta a week ago. During hospital stay she continued to receive her chronic oxycodone but her carisoprodol and Lunesta were held. She returned to her baseline mental status at the time of discharge. Head CT on admission showed a questionable abnormality. This can be followed up as an outpatient with MRI imaging as indicated Status at Discharge Cognitive/behavioral status at discharge: Back to baseline Overall status at discharge: patient is back to baseline Time Spent with Patient Time attestation: Total time spent providing and/or coordinating discharge services: Exam Narrative: Exam Narrative: She is alert, pleasant and in no distress. Speech is normal. She is oriented to her circumstances. No facial asymmetry. Respirations are clear to auscultation. Cardiovascular: S1, S2, regular rate and rhythm. Abdomen is soft without tenderness. Const: Vital Signs, click to edit/add: Vital Signs - 24 hr 04/30/24 09:17 04/30/24 09:34 04/30/24 11:44 Temperature Pulse Rate 77 Pulse Rate [Pulse Oximeter] 82 Pulse Rate [orthos tatic lying Blood Pressure Cuff] 74 Pulse Rate [orthos tatic sitting Bloo d Pressure Cuff] 82 Pulse Rate [orthos tatic standing Blo od Pressure Cuff] 95 Respiratory Rate 18 Blood Pressure [Le ft Arm] Blood Pressure [or thostatic lying Le ft Arm] 129/81 Blood Pressure [or thostatic sitting] 140/110 H Blood Pressure [or thostatic standing Left Arm] 131/95 H Pulse Oximetry Oxygen Delivery Me thod 04/30/24 11:53 04/30/24 15:45 04/30/24 16:56 Temperature 97.6 F 97.6 F Pulse Rate Pulse Rate [Pulse Oximeter] 71 83 Pulse Rate [orthos tatic lying Blood Pressure Cuff] Pulse Rate [orthos tatic sitting Bloo d Pressure Cuff] Pulse Rate [orthos tatic standing Blo od Pressure Cuff] Respiratory Rate 18 18 18 Blood Pressure [Le ft Arm] 146/92 H 139/103 H Blood Pressure [or thostatic lying Le ft Arm] Blood Pressure [or thostatic sitting] Blood Pressure [or thostatic standing Left Arm] Pulse Oximetry 94 96 96 Oxygen Delivery Me thod Room Air Room Air Room Air 04/30/24 16:56 04/30/24 17:12 04/30/24 19:00 Temperature Pulse Rate 86 Pulse Rate [Pulse Oximeter] 83 71 Pulse Rate [orthos tatic lying Blood Pressure Cuff] Pulse Rate [orthos tatic sitting Bloo d Pressure Cuff] Pulse Rate [orthos tatic standing Blo od Pressure Cuff] Respiratory Rate 18 20 Blood Pressure [Le ft Arm] 128/79 Blood Pressure [or thostatic lying Le ft Arm] Blood Pressure [or thostatic sitting] Blood Pressure [or thostatic standing Left Arm] Pulse Oximetry 94 Oxygen Delivery Me thod Room Air 04/30/24 23:00 04/30/24 23:00 04/30/24 23:00 Temperature Pulse Rate 71 Pulse Rate [Pulse Oximeter] 75 Pulse Rate [orthos tatic lying Blood Pressure Cuff] Pulse Rate [orthos tatic sitting Bloo d Pressure Cuff] Pulse Rate [orthos tatic standing Blo od Pressure Cuff] Respiratory Rate 22 22 Blood Pressure [Le ft Arm] Blood Pressure [or thostatic lying Le ft Arm] Blood Pressure [or thostatic sitting] Blood Pressure [or thostatic standing Left Arm] Pulse Oximetry 92 Oxygen Delivery Me thod Room Air 04/30/24 23:00 05/01/24 03:00 05/01/24 07:10 Temperature 97.5 F L 97.5 F L Pulse Rate 67 Pulse Rate [Pulse Oximeter] 75 74 Pulse Rate [orthos tatic lying Blood Pressure Cuff] Pulse Rate [orthos tatic sitting Bloo d Pressure Cuff] Pulse Rate [orthos tatic standing Blo od Pressure Cuff] Respiratory Rate 22 18 Blood Pressure [Le ft Arm] 144/86 H 124/76 Blood Pressure [or thostatic lying Le ft Arm] Blood Pressure [or thostatic sitting] Blood Pressure [or thostatic standing Left Arm] Pulse Oximetry 92 92 Oxygen Delivery Me thod Room Air Room Air 05/01/24 07:35 05/01/24 07:35 Temperature 98.5 F Pulse Rate Pulse Rate [Pulse Oximeter] 70 Pulse Rate [orthos tatic lying Blood Pressure Cuff] Pulse Rate [orthos tatic sitting Bloo d Pressure Cuff] Pulse Rate [orthos tatic standing Blo od Pressure Cuff] Respiratory Rate 16 16 Blood Pressure [Le ft Arm] 135/87 Blood Pressure [or thostatic lying Le ft Arm] Blood Pressure [or thostatic sitting] Blood Pressure [or thostatic standing Left Arm] Pulse Oximetry 94 94 Oxygen Delivery Me thod Room Air Room Air Documenting provider has reviewed patient's vital signs: yes DS: Data Data Completed and Pending Completed studies during hospitalization: Procedures Supplement Abdominal Wall with Synthetic Substitute, Open Approach (04/05/23) Imaging CT scan - head: Radiologist's impression: Indication: Altered mental status Technique: Noncontrast CT through the head with multiplanar reformats Comparison: None Findings: Brain: Questionable hypodensity in the right cerebellum versus streak artifact. No definite acute infarct. No acute hemorrhage. No significant mass effect or midline shift. Partially empty and expanded sella. Ventricles: No acute abnormality appreciated. Orbits, sinuses, mastoids: No acute abnormality appreciated. Calvarium and soft tissues: No acute abnormality appreciated. Impression: Question hypodensity in the right cerebellum versus streak artifact. This does occur within or adjacent to an area of streak degradation, but is slightly asymmetric to the contralateral side. MRI could be considered if there is strong clinical suspicion for cerebellar symptoms. No other acute abnormality appreciated. Discharge Plan Discharge Disposition: Home, Self-Care Date of Admission: 04/29/24 23:29 Attending Provider on Discharge: Yadiel Lowe Primary Care Provider: Adele Rodriguez Condition: Stable Anticipated Discharge Date/Time: 05/01/24 09:06 Discharge Medications: New cephalexin 500 mg Capsule 500 mg PO BID Qty: 6 0RF Continued carisoprodol 350 mg tablet 350 mg PO 3XD oxycodone-acetaminophen 5-325 mg tablet 1 tab PO Q6H PRN (Reason: pain) fluticasone propionate 50 mcg/actuation spray,suspension 1 spray INTRANASAL BID PRN cholecalciferol (vitamin D3) 125 mcg (5,000 unit) capsule 125 mcg PO DAILY pregabalin 150 mg capsule 150 mg PO TID cyanocobalamin (vitamin B-12) 1,000 mcg capsule 1,000 mcg PO DAILY loratadine [Claritin] 10 mg tablet 10 mg PO DAILY naloxone [Narcan] 4 mg/actuation spray,non-aerosol 1 spray intranasal Q2-3M PRN Rx Instructions: spray 1 dose into ONE nostril; alternate nostrils w each dose until help arrives sumatriptan succinate [Imitrex] 25 mg tablet 25 mg PO Q2-4H PRN Rx Instructions: do not exceed 8 doses per 24 hrs Discontinued eszopiclone 3 mg tablet 3 mg PO QPM Discharge Orders: Discharge Order (Routine); Ordered 05/01/24 Ordered By: Yadiel Lowe Activity Level: Activity as Tolerated Discharge Diet: Regular Follow Up Appointments: Adele Rodriguez PA-C [Primary Care Provider] - (Follow-up in 1 week for review of medications) Forms: [place] Info Instructions
[2024-05-01] MEDS: cephALEXin 500 MG CAPSULE PO (08:54)
[2024-05-01] MEDS: SODIUM CHLORIDE 0.9 % (FLUSH) 10 ML SYRINGE 5 ML IVF (08:54)
[2024-05-01 10:38] VITALS: BP 130/96; PULSE 80; RESP 16; TEMP 36.4; O2SAT 95
--- NOTE | 2024-05-01 11:22 | PC.NURSE ---
Pt alert and oriented. Pt up independently in room. Pt had complaints of pain ranging 7-8; see EMAR for intervention. Pt's IV's removed; catheters intact. Pt discharged home with mother.
== END 2024-05-01 11:08 | disposition home or self-care (01) ==
LOC: ED 23:03 → MEDSURG 23:30
PROVIDERS: Admitting Provider Family Medicine; Emergency Provider Family Medicine; PCP Physician Assistant Medical; Visit Provider Family Medicine
DX: R41.82 Altered mental status, unspecified (principal); Z79.899 Other long term (current) drug therapy; R93.0 Abnormal findings on diagnostic imaging of skull and head, not elsewhere classified; G89.29 Other chronic pain; F11.20 Opioid dependence, uncomplicated
CPT/HCPCS: 36415; 70450; 80048; 80143; 80179; 80306; 81001; 82077; 82550; 83605; 84484; 85025; 86140; 87086; 87186; 93005; 96361; 96374; 97116; 97162; 97165; 97535; 99284; 99285; G0378; A9270; J2060; J7030